=== PATIENT | female | born 1960 | race Caucasian/White ===

== ENCOUNTER 2018-10-05 18:26 | Emergency (ER) | payer OTHER ==
[~2018-10-05] VITALS: Ht 165.1 cm; Wt 225.9 kg
[2018-10-05 18:43] VITALS: BP 133/68
[2018-10-05] MEDS ORDERED: ELIQUIS5 MG PO (18:46)
[2018-10-05] MEDS ORDERED: MAXZIDE-25 MG1 EACH PO (18:47)
[2018-10-05] MEDS ORDERED: CARVEDILOL12.5 MG PO (18:47)
[2018-10-05] MEDS ORDERED: VITAMIN D1000 UNI1 PO (18:48)
[2018-10-05] MEDS ORDERED: MULTI VITAMIN1 EACH PO (18:48)
[2018-10-05 18:59] LABS: HEMATOCRIT 36.8 % (37.0-47.0); HEMOGLOBIN 11.7 gm/dL (12.0-15.0); MCH 28.6 pg (26.0-34.0); MCHC 31.7 g/dL (28.0-37.0); MCV 90.4 fL (80.0-100.0); RBC 4.07 mil/uL (4.20-5.00); RDW-CV 16.4 % (10.5-14.5); WBC 8.2 thou/uL (4.0-11.0)
== END 2018-10-05 19:56 | disposition home or self-care (01) ==
LOC: M.ERS 18:26
PROVIDERS: Emergency Medicine Emergency Medical Services
DX: R04.0 Epistaxis (principal); Z88.5 Allergy status to narcotic agent

== ENCOUNTER 2019-07-10 14:16 | Inpatient (IN) | payer OTHER ==
[~2019-07-10] VITALS: Ht 165.1 cm; Wt 234.1 kg
[~2019-07-10 14:16] MED LIST: CARVEDILOL12.5 MG PO; ELIQUIS5 MG PO; MAXZIDE-25 MG1 EACH PO; MULTI VITAMIN1 EACH PO; VITAMIN D1000 UNI1 PO
[2019-07-10 14:17] VITALS: BP 136/52
[2019-07-10 14:56] LABS: ABSOLUTE BASOPHILS 0.1 thou/uL (0.0-0.2); ABSOLUTE EOSINOPHILS 0.1 thou/uL (0.0-0.7); ABSOLUTE LYMPHOCYTES 0.7 thou/uL (0.8-5.3); ABSOLUTE MONOCYTES 0.5 thou/uL (0.0-1.2); ABSOLUTE NEUTROPHILS 5.7 thou/uL (1.6-8.1); BASOPHILS 1.1 %; EOSINOPHILS 1.2 %; HEMATOCRIT 32.6 % (37.0-47.0); HEMOGLOBIN 10.3 gm/dL (12.0-15.0); LYMPHOCYTES 9.9 %; MCH 28.1 pg (26.0-34.0); MCHC 31.7 g/dL (28.0-37.0); MCV 88.8 fL (80.0-100.0); MONOCYTES 7.7 %; MPV 8.2 fl. (7.2-11.1); NUCLEATED RBCS 0 /100WBC; PLATELET COUNT* 236 thou/uL (150-400); POLYS 80.1 %; RBC 3.67 mil/uL (4.20-5.00); RDW-CV 17.1 % (10.5-14.5); WBC 7.1 thou/uL (4.0-11.0)
--- NOTE | 2019-07-10 14:58 | NUR ---
PT REPORTS LETHARGY AT THIS TIME. PT STATES SHE HAS CHANGED HER DIET TO A KETO DIET OVER THE LAST FEW WEEKS, HAS BEEN EATING A LOT OF PROTEIN WITH NO WEIGHT LOSS BUT THINKS IT MAY BE CONTRIBUTING TO HER LETHARGY.
[2019-07-10 15:06] LABS: APTT 26.1 Seconds (25.0-31.3); BUN 26 mg/dL (7-18); CALCIUM 8.4 mg/dL (8.5-10.1); CHLORIDE 95 mmol/L (98-107); CREATININE 1.1 mg/dL (0.6-1.3); GLUCOSE 89 mg/dL (70-99); INR 1.1; POTASSIUM 4.5 mmol/L (3.5-5.1); PROTIME 11.3 Seconds (9.20-11.50); SODIUM 138 mmol/L (136-145)
[2019-07-10 15:10] LABS: CO2 > 45 mmol/L (21-32)
[2019-07-10 15:22] LABS: ALBUMIN 2.8 g/dL (3.4-5.0); ALKALINE PHOSPHATASE 71 U/L (46-116); NT-PRO BRAIN NAT PEPTIDE 1273 pg/mL (<300); SGOT 24 U/L (15-37); SGPT 25 U/L (30-65); TOTAL BILIRUBIN 0.4 mg/dL (<0.1-1.0); TOTAL PROTEIN 7.1 g/dL (6.4-8.2)
--- NOTE | 2019-07-10 15:31 | NUR ---
PT STATED HOSPITAL GOWN WILL NOT FIT AND WOULD PREFER TO STAY IN HER SHIRT/GOWN
[2019-07-10 20:35] VITALS: BP 172/75
[2019-07-10 21:00] VITALS: BP 146/65
--- NOTE | 2019-07-10 21:00 | NUR ---
RECEIVED REPORT FROM ER, PT TO ROOM AT 2044. PT ABLE TO AMBULATED WITH WALKER AND ASSISTED INTO BARIATRIC BED. VERY SOA WITH ANY MOVEMENT. O2 ON, INCREASED TO 5L/NC DUE TO LOW SAT. PRESENT O2 SAT 88%. LARGE PENDULOUS ABD AND KATYA LEG FOLDS, AREAS RED AND MOIST. RT LEG FOLD NOTED TO HAVE OPEN LESIONS. TELEMETRY APPLIED SHOWING A-FIB/FLUTTER. SEE ADMISSION HX AND ASSESSMENT. WILL CONT TO MONITOR AND ASSIST NEEDED.
[2019-07-10 23:59] VITALS: BP 137/69
[2019-07-11 03:51] VITALS: BP 124/64
--- NOTE | 2019-07-11 06:30 | NUR ---
AWAKE MOST OF NIGHT. NO COMPLAINTS OF DISCOMFORT. O2 REMAINS ON AT 5L/NC AND DYSPNEA, ASSISTED TO BSC WITH MAX ASSIST AND HYGENE NEEDS. TELEMETRY CONT TO SHOW A-FIB/FLUTTER. HS GOALS OF REST AND SAFETY ACHIEVED. HOURLY ROUNDING OBSERVED.
[2019-07-11 08:00] VITALS: BP 130/74
[2019-07-11] MEDS ORDERED: CLARITIN10 M3 PO ×2 (08:08→08:09)
[2019-07-11] MEDS ORDERED: ADVAIR 250-501 EACH INH (08:10)
[2019-07-11] MEDS ORDERED: PROAIR HFA8.5 GM INH (08:10)
[2019-07-11 11:30] VITALS: BP 132/63
--- NOTE | 2019-07-11 13:44 | EKG ---
[place] [address] ELECTROCARDIOGRAM REPORT Name: NANDO WATSON Room: [address] ADM IN [facility]#: [id number] Admission: 07/10/19 Attend Phys: Sammi Marques MD Discharge: Date of : 58 Report #: [id number] THIS REPORT FOR: //name// [facility] ED Test Date: 2019-07-10 Test Time: 15:38:45 Pat Name: NANDO WATSON Department: Room: [facility] Gender: F Manufacture Specialist: [facility] : 1960 Requested By: Amador Olivo Order Number: [id number] MD: Praveen Jackson Measurements Intervals Lynn Rate: 60 P: CT: QRS: -17 QRSD: 118 T: 32 QT: 440 QTc: 440 Interpretive Statements Atrial fibrillation Incomplete right bundle branch block Low voltage, precordial leads No previous ECG available for comparison Electronically Signed On 07-11-2019 13:44:01 [employer] WORK[employer] by Praveen Jackson [email or web address] <ELECTRONICALLY SIGNED> By: Praveen Jackson MD, [facility] 07/11/19 1344 1538 1538 Praveen Jackson MD, [facility] /EPI
--- NOTE | 2019-07-11 14:49 | NUR ---
Pt is A&O. Resides at home with her kids. Dtr assists with some ADLs. Kids completed IADLs. Pt uses a walker for in house distances and a wc for community distances. Pt wears home o2 provided through [facility]. No hx of HH or SNF. CM to check to see if Pt's insurance provides inhome care providers. Following.
[2019-07-11 16:09] VITALS: BP 132/67
[2019-07-11 20:00] VITALS: BP 137/68
--- NOTE | 2019-07-11 20:00 | NUR ---
RECEIVED REPORT AND ASSUMED CARE OF PT, ASSESSMENT COMPLETED. PT PLEASANT. O2 ON AT 5L/NC, HOB ELEVATED. SOA WITH ANY ACTIVITY. MOVES SELF IN BED FOR COMFORT. TELEMETRY ON SHOWING A-FIB WITH BBB. WILL CONT TO MONITOR AND ASSIST NEEDED.
[2019-07-12] VITALS: BP 137/73
[2019-07-12 03:57] VITALS: BP 141/75
[2019-07-12 05:21] LABS: HEMATOCRIT 31.5 % (37.0-47.0); MCH 28.1 pg (26.0-34.0); MCHC 31.9 g/dL (28.0-37.0); MCV 88.2 fL (80.0-100.0); MPV 8.5 fl. (7.2-11.1); RBC 3.57 mil/uL (4.20-5.00); RDW-CV 16.9 % (10.5-14.5); WBC 7.5 thou/uL (4.0-11.0)
[2019-07-12 05:44] LABS: ALBUMIN 2.6 g/dL (3.4-5.0); ALKALINE PHOSPHATASE 60 U/L (46-116); ANION GAP < 0 mmol/L (7-16); BUN 29 mg/dL (7-18); CALCIUM 8.3 mg/dL (8.5-10.1); CHLORIDE 95 mmol/L (98-107); CO2 44 mmol/L (21-32); CREATININE 1.2 mg/dL (0.6-1.3); GLUCOSE 161 mg/dL (70-99); SGOT 19 U/L (15-37); SGPT 24 U/L (30-65); SODIUM 136 mmol/L (136-145); TOTAL BILIRUBIN 0.3 mg/dL (<0.1-1.0); TOTAL PROTEIN 6.8 g/dL (6.4-8.2)
--- NOTE | 2019-07-12 06:10 | NUR ---
SLEPT WELL TONIGHT. ASSISTED TO BSC, USES STEP STOOLS SAFELY. NO CHANGE IN ASSESSMENT. TELEMETRY CONT TO SHOW A-FIB WITH BBB. NO COMPLAINTS VOICED. HS GOALS OF REST AND SAFETY ACHIEVED. HOURLY ROUNDING OBSERVED.
--- NOTE | 2019-07-12 11:00 | NUR ---
ASSUMED PT CARE 0730. PT A/O X'S 4. NO C/O PAIN. PT UP WITH 1 TO CHAIR AND BSC. PT SITTING IN CHAIR THIS AM. VSS. AFEBRILE. AM MEDICATIONS ADMININSTERED PER SEP.
[2019-07-12 12:02] VITALS: BP 141/67
[2019-07-12] MEDS ORDERED: LEVAQUIN 500 M500 M3 PO (12:56)
[2019-07-12] MEDS ORDERED: PREDNISONE 10 M10 MG PO (12:56)
[2019-07-12] MEDS ORDERED: SINGULAIR 10 MG10 M1 PO (12:56)
[2019-07-12 13:24] VITALS: BP 141/67
--- NOTE | 2019-07-12 13:55 | NUR ---
Orders received to set up HH, NIKKO contacted 8 HH agencies, all declined stating that Pt's insurance does not reimburse. NIKKO updated Dr and Pt, Pt to dc home today without HH. Son in room with portable o2 tank and will transport
--- NOTE | 2019-07-12 15:43 | NUR ---
RECEIVED DISCHARGE ORDERS. IV AND NURSE INTERN DC'D. PT EDUCATED ON NEW MEDICATIONS. DISCHARGE INSTRUCTIONS GIVEN TO PT AND SON. ALL BELONGINGS PACKED UP AND LEFT WITH PT. PT DC'D WITH HOME OXYGEN TANK.
== END 2019-07-12 14:24 | disposition home or self-care (01) | DRG 189 ==
LOC: M.ERS 14:16 → M.TBA-ER 15:59 → M.2W 15:59
PROVIDERS: Family Medicine; ADMIT Internal Medicine
DX: J96.21 Acute and chronic respiratory failure with hypoxia (principal); J96.22 Acute and chronic respiratory failure with hypercapnia; E66.01 Morbid (severe) obesity due to excess calories; J44.1 Chronic obstructive pulmonary disease with (acute) exacerbation; E87.2 Acidosis; Z68.45 Body mass index [BMI] 70 or greater, adult; Z88.6 Allergy status to analgesic agent; Z79.899 Other long term (current) drug therapy

== ENCOUNTER 2020-01-30 12:53 | Inpatient (IN) | payer MEDICARE, OTHER ==
[~2020-01-30] VITALS: Ht 165.1 cm; Wt 232.7 kg
[~2020-01-30 12:53] MED LIST changes: +ADVAIR 250-501 EACH INH; +ALEVE220 M1 PO; +CLARITIN10 M3 PO; +COZAAR100 MG PO; +LASIX 40 MG TAB40 M2 PO; +LEVAQUIN 500 M500 M3 PO; +MEDROL DOSPAK21 TA1 PO; +PREDNISONE 10 M10 MG PO; +PROAIR HFA8.5 GM INH; +SINGULAIR 10 MG10 M1 PO; +TRIAMTERENE/HCT1 CA1 PO; +TYLENOL ARTHRI650 MG PO
[2020-01-30 13:00] VITALS: BP 136/46
[2020-01-30 13:51] LABS: BE 8.2 mmol/L (-2 to +3); PO2 71.6 mmHg (75.0-100.0)
[2020-01-30 13:54] LABS: PCO2 90.7 mmHg (35.0-45.0); pH 7.235 (7.340-7.450)
[2020-01-30 15:15] LABS: HEMATOCRIT 27.6 % (37.0-47.0); HEMOGLOBIN 8.1 gm/dL (12.0-15.0); MCH 23.7 pg (26.0-34.0); MCHC 29.3 g/dL (28.0-37.0); MCV 80.9 fL (80.0-100.0); MPV 7.5 fl. (7.2-11.1); NUCLEATED RBCS 1 /100WBC; PLATELET COUNT* 292 thou/uL (150-400); RBC 3.41 mil/uL (4.20-5.00); RDW-CV 19.6 % (10.5-14.5)
[2020-01-30 15:17] LABS: ANION GAP < 0 mmol/L (7-16); BUN 44 mg/dL (7-18); CALCIUM 8.1 mg/dL (8.5-10.1); CHLORIDE 101 mmol/L (98-107); CO2 40 mmol/L (21-32); CREATININE 1.6 mg/dL (0.6-1.3); GLUCOSE 110 mg/dL (70-99); POTASSIUM 5.2 mmol/L (3.5-5.1); SODIUM 140 mmol/L (136-145)
[2020-01-30 15:22] LABS: ALBUMIN 2.8 g/dL (3.4-5.0); ALKALINE PHOSPHATASE 80 U/L (46-116); MAGNESIUM 2.6 mg/dL (1.8-2.4); SGOT 30 U/L (15-37); SGPT 25 U/L (30-65); TOTAL BILIRUBIN 0.6 mg/dL (<0.1-1.0); TOTAL PROTEIN 6.9 g/dL (6.4-8.2)
[2020-01-30 15:45] LABS: ABSOLUTE EOSINOPHILS 0.1 thou/uL (0.0-0.7); ABSOLUTE LYMPHOCYTES 0.5 thou/uL (0.8-5.3); ABSOLUTE MONOCYTES 0.2 thou/uL (0.0-1.2); ABSOLUTE NEUTROPHILS 8.2 thou/uL (1.6-8.1); ANISOCYTOSIS 1+; HYPOCHROMASIA 1+
[2020-01-30 15:46] LABS: PLATELET ESTIMATE ADEQUATE; POLYCHROMASIA Occasional
--- NOTE | 2020-01-30 16:22 | NUR ---
PT EDUCATED ON NOT REMOVING BIPAP HERSELF.
--- NOTE | 2020-01-30 17:59 | NUR ---
DR. BATSHEVA IRVIN WITH TRANSITIONING TO 5LNC FROM BIPAP FOR DINNER. PT PROVIDED TRAY ACCORDING TO DIET ORDER.
[2020-01-30 21:45] VITALS: BP 125/48
[2020-01-30 23:00] VITALS: BP 122/62
[2020-01-30 23:25] LABS: URINE BILIRUBIN NEGATIVE (Negative); URINE BLOOD TRACE (Negative); URINE CLARITY CLEAR; URINE COLOR YELLOW; URINE GLUCOSE-RANDOM NEGATIVE (Negative); URINE KETONES NEGATIVE (Negative); URINE LEUKOCYTES-REFLEX 1+ (Negative); URINE NITRITE-REFLEX NEGATIVE (Negative); URINE PROTEIN TRACE (Negative); URINE UROBILINOGEN 0.2 E.U./dl (0.2-1.0)
[2020-01-30 23:42] LABS: BACTERIA-REFLEX >30 Many /HPF (None Seen); CASTS None Seen /LPF (None Seen); CRYSTALS None Seen /LPF (None Seen); MUCUS 0-3 Light strn/LPF (None Seen); SQUAMOUS >10 Many /LPF (0-3); URINE RBC 0-2 Rare /HPF (0-2); URINE WBC-REFLEX 0-5 Rare /HPF (0-5)
[2020-01-31] VITALS: BP 130/58
[2020-01-31 01:18] LABS: BE 9.5 mmol/L (-2 to +3); PO2 61.9 mmHg (75.0-100.0)
[2020-01-31 01:19] LABS: pH 7.251 (7.340-7.450)
[2020-01-31 04:00] VITALS: BP 136/66
--- NOTE | 2020-01-31 06:30 | NUR ---
RECEIVED REPORT FROM ED RN. PT TRANSFERRED TO 202. PT A&OX4. VSS. WAISTBAND SETTER LOCKSTITCH IN PLACE. ADMISSION HISTORY & PHYSICAL ASSESSMENT COMPLETED AND CHARTED. ORIENTED TO ROOM & CALL LIGHT. REC MED DONE. PT ON NRB AT 15L FROM ER. TRANSFERRED TO [facility] BED. PT ONLY WORE BIPAP FOR AN HOUR & REFUSED. PREFERS TO WEAR HOME TRILOGY AT 12L. MRSA SWAB & URINE SPECIMEN SENT TO LAB. PT ABLE TO SLEEP WELL ON BED. CALL LIGHT WITHIN REACH.
[2020-01-31 07:37] LABS: HEMATOCRIT 26.5 % (37.0-47.0); HEMOGLOBIN 7.8 gm/dL (12.0-15.0); MCH 23.7 pg (26.0-34.0); MCHC 29.6 g/dL (28.0-37.0); MCV 80.1 fL (80.0-100.0); MPV 7.6 fl. (7.2-11.1); RBC 3.3 mil/uL (4.20-5.00); RDW-CV 19.5 % (10.5-14.5); WBC 7.3 thou/uL (4.0-11.0)
[2020-01-31 07:41] LABS: CREATININE 1.4 mg/dL (0.6-1.3); POTASSIUM 5.1 mmol/L (3.5-5.1)
[2020-01-31 08:00] VITALS: BP 85/68
[2020-01-31 08:35] LABS: MAGNESIUM 2.4 mg/dL (1.8-2.4)
--- NOTE | 2020-01-31 10:36 | EKG ---
[place] [address] ELECTROCARDIOGRAM REPORT Name: NANDO WATSON Room: [address] IN [facility].#: [id number] Admission: 01/30/20 Attend Phys: Fuentes Frazier, Discharge: Date of : 58 Date of Service: 01/30/20 1412 Report #: [id number] THIS REPORT FOR: //name// [facility] ED Test Date: 2020-01-30 Test Time: 14:12:53 Pat Name: NANDO WATSON Department: Room: [facility] Gender: F Wheel Lacer And Truer: ANAM : 1960 Requested By: Dariana Curran Order Number: [id number] MD: Wolf Esquivel Measurements Intervals Hiko Rate: 80 P: [place]: QRS: -39 QRSD: 119 T: 43 QT: 385 QTc: 445 Interpretive Statements Atrial fibrillation Incomplete right bundle branch block Compared to ECG 09/05/2019 20:51:38 IVCD right persists Electronically Signed On 01-31-2020 10:36:27 CDT by Wolf Esquivel [email or web address] <ELECTRONICALLY SIGNED> By: Wolf Esquivel MD, [facility] 01/31/20 1036 1412 1412 Wolf Esquivel MD, [facility] /EPI
[2020-01-31 11:44] VITALS: BP 152/72
--- NOTE | 2020-01-31 12:14 | NUR ---
Pt is A&O. Resides at home with her kids. Kids assist with ADLs and IADLs. Pt wears continuous o2 provided through [facility]. Pt has a trilogy through [employer]. Pt has a walker and wc for mobility, Pt states that she is pretty much home bound. Pt also has an adjustable bed and a commode. Hx of [facility]. No hx of SNF. CM discussed SNF with Pt, Pt is interested, Cm faxed referrals to Rosal[facility] Mendez, [facility], [place] and [facility], awaiting decision to accept. If Pt is not able to go SNF, plan is home with HH. Following.
--- NOTE | 2020-01-31 15:41 | NUR ---
ASSUMED CARE OF PT AROUND 0730 THIS AM. REFER TO ASSESSMENT. ORTHO CONSULTED FOR LEFT ELBOW PAIN. NEW ORDER FOR US TO LT ELBOW. NOT KNOWN TO BE COMPLETED AT THIS TIME. PT HAS BEEN UP TO CHAIR MOST THIS SHIFT. ABLE TO TRANSFER FROM BED TO CHAIR WITH ASSIST X1, GAIT BELT, AND WALKER. ANTICIPATE IT WILL BE NECESSARY FOR JOSE RAMON LIFT TO TRANSFER FROM CHAIR TO BED D/T HEIGHT OF BARIATRIC BED. OCCUPATIONAL THERAPY ASSISTANT NOTIFIED TO ORDER BARIATRIC RECLINER. PT'S PURE WICK CATHETER NOT WORKING CORRECTLY AND HAS BEEN REMOVED AT THIS TIME. NO OTHER CONCERNS AT THIS TIME. CLWR. WCTM.
[2020-01-31 18:26] VITALS: BP 145/78
[2020-01-31 19:50] VITALS: BP 158/72
[2020-02-01] VITALS: BP 109/58
[2020-02-01 04:00] VITALS: BP 141/57
[2020-02-01 04:42] LABS: CALCIUM 8.1 mg/dL (8.5-10.1); CREATININE 1.6 mg/dL (0.6-1.3); MAGNESIUM 2.3 mg/dL (1.8-2.4); POTASSIUM 4.7 mmol/L (3.5-5.1)
--- NOTE | 2020-02-01 04:57 | NUR ---
PT CARE ASSUMED AT 1930. ALERT AND ORIENTED X4. C/O PAIN, MEDICATION GIVEN PER EMAR. INCONTINENT OF BOWEL. CALL LIGHT WITHIN REACH AND BED IN LOW POSITION. HOURLY ROUNDING DONE FOR PT SAFETY.
[2020-02-01 07:38] VITALS: BP 130/58
[2020-02-01 12:33] VITALS: BP 137/89
[2020-02-01 12:37] VITALS: BP 137/89
--- NOTE | 2020-02-01 13:18 | NUR ---
Pt is discharging to [facility] skilled today, facility to picker tender at 3pm. Faxed dc orders. Chart copied. Nurse report number is [phone]. Son aware of dispo and will picker tender trilogy, Pt aware that she is unable to use the trilogy at [facility]. Facility ordered bipap, settings faxed.
[2020-02-01] MEDS ORDERED: LEVAQUIN 750 M750 MG PO (13:25)
--- NOTE | 2020-02-01 14:34 | NUR ---
ASSUMED CARE OF PT AROUND 0730 THIS AM. REFER TO ASSESSMENT. PT UP TO CHAIR FOR ALL MEALS. ABLE TO TRANSFER TO BSC WITH ASSIST X1 AND WALKER. SPLINT TO LUE C/D/I. MAINTAINING NWB TO LUE. PT TO TRANSFER TO [facility] THIS EVENING. CASE MANAGEMENT ARRANGING TRANSPORTATION WITH AMBULANCE. NO OTHER CONCERNS AT THIS TIME. CLWR. WCTM.
[2020-02-01 16:42] VITALS: BP 134/81
== END 2020-02-01 17:05 | DRG 177 ==
LOC: M.ERS 12:53 → M.2W 15:49 → M.TBA-ER 15:49 → M.2W 22:12
PROVIDERS: Personal Emergency Response Attendant; ADMIT Internal Medicine; ATTEND Internal Medicine
PROC: 5A09357 Assistance with Respiratory Ventilation, Less than 24 Consecutive Hours, Continuous Positive Airway Pressure (ICD-10-PCS; principal; 2020-01-30)
PROC: 5A09357 Assistance with Respiratory Ventilation, Less than 24 Consecutive Hours, Continuous Positive Airway Pressure (ICD-10-PCS; 2020-01-31)
PROC: 5A09357 Assistance with Respiratory Ventilation, Less than 24 Consecutive Hours, Continuous Positive Airway Pressure (ICD-10-PCS; 2020-02-01)
DX: J15.6 Pneumonia due to other Gram-negative bacteria (principal); J96.22 Acute and chronic respiratory failure with hypercapnia; N17.0 Acute kidney failure with tubular necrosis; J96.21 Acute and chronic respiratory failure with hypoxia; Z68.45 Body mass index [BMI] 70 or greater, adult; J44.0 Chronic obstructive pulmonary disease with (acute) lower respiratory infection; E66.2 Morbid (severe) obesity with alveolar hypoventilation; I50.32 Chronic diastolic (congestive) heart failure; J44.1 Chronic obstructive pulmonary disease with (acute) exacerbation; S46.312A Strain of muscle, fascia and tendon of triceps, left arm, initial encounter; I48.91 Unspecified atrial fibrillation; N18.3 Chronic kidney disease, stage 3 (moderate); S59.802A Other specified injuries of left elbow, initial encounter; X58.XXXA Exposure to other specified factors, initial encounter; Y93.89 Activity, other specified; Z90.5 Acquired absence of kidney; Y92.89 Other specified places as the place of occurrence of the external cause; Z79.01 Long term (current) use of anticoagulants; Z79.899 Other long term (current) drug therapy; Z88.5 Allergy status to narcotic agent; Y99.8 Other external cause status; Z03.818 Encounter for observation for suspected exposure to other biological agents ruled out

== ENCOUNTER 2020-11-12 14:10 | Inpatient (IN) | payer MEDICARE ==
[~2020-11-12] VITALS: Ht 165.1 cm; Wt 225.9 kg
--- NOTE | ~2020-11-12 | PROC ---
[facility] [address] [place] [address] PROCEDURE REPORT Name: NANDO WATSON Room: [address] IN .R.#: [id number] Admission: 11/12/20 Attend Phys: Suzy Bowden Discharge: 11/16/20 Date of : 58 Report #: [id number] THIS REPORT FOR: cc: Sherron Zhang Mischelle RNP [facility],Medical Records Staff ~ For GI report, please see the Provation report in Perceptive 7 content. By: 1453Medical Records Staff [facility] /LINDA
[~2020-11-12 14:10] MED LIST changes: +LEVAQUIN 750 M750 MG PO
[2020-11-12 14:13] VITALS: BP 141/54
[2020-11-12] MEDS ORDERED: XARELTO20 MG PO (14:18)
[2020-11-12] MEDS ORDERED: MAXZIDE 75-501 EACH PO (14:20)
[2020-11-12] MEDS ORDERED: COZAAR 25 MG TA25 M1 PO (14:20)
[2020-11-12 14:48] LABS: ABSOLUTE LYMPHOCYTES 0.5 thou/uL (0.8-5.3); ABSOLUTE MONOCYTES 0.5 thou/uL (0.0-1.2); BASOPHILS 0.4 %; EOSINOPHILS 0.6 %; LYMPHOCYTES 7.9 %; MCHC 29.4 g/dL (28.0-37.0); MCV 74.8 fL (80.0-100.0); MONOCYTES 8.4 %; MPV 7.4 fl. (7.2-11.1); NUCLEATED RBCS 1 /100WBC; PLATELET COUNT* 303 thou/uL (150-400); POLYS 82.7 %; RBC 2.56 mil/uL (4.20-5.00); RDW-CV 18.6 % (10.5-14.5); WBC 6.1 thou/uL (4.0-11.0)
[2020-11-12 14:52] LABS: HEMATOCRIT 19.2 % (37.0-47.0); HEMOGLOBIN 5.6 gm/dL (12.0-15.0)
[2020-11-12 15:08] LABS: APTT 26.5 Seconds (25.0-31.3); INR 1.1; PROTIME 12.1 Seconds (9.20-11.50)
[2020-11-12 15:13] LABS: ANION GAP < 0 mmol/L (7-16); BUN 27 mg/dL (7-18); CALCIUM 8.6 mg/dL (8.5-10.1); CHLORIDE 96 mmol/L (98-107); CO2 41 mmol/L (21-32); CREATININE 1.1 mg/dL (0.6-1.3); GLUCOSE 152 mg/dL (70-99); POTASSIUM 4.5 mmol/L (3.5-5.1); SODIUM 135 mmol/L (136-145)
[2020-11-12 15:16] LABS: POLYCHROMASIA 2+
[2020-11-12 15:17] LABS: ALBUMIN 2.9 g/dL (3.4-5.0); ALKALINE PHOSPHATASE 65 U/L (46-116); HYPOCHROMASIA 4+; MICROCYTES 1+; NT-PRO BRAIN NAT PEPTIDE 1187 pg/mL (<300); OVALOCYTES 3+; SGOT 19 U/L (15-37); SGPT 20 U/L (30-65); TOTAL BILIRUBIN 0.4 mg/dL (<0.1-1.0); TOTAL PROTEIN 6.8 g/dL (6.4-8.2)
[2020-11-12 15:18] LABS: ANISOCYTOSIS 3+
--- NOTE | 2020-11-12 15:47 | EKG ---
[place] [address] ELECTROCARDIOGRAM REPORT Name: NANDO WATSON Room: [place] [address] ADM IN [facility]#: [id number] Admission: 11/12/20 Attend Phys: Yoseph Hatch Discharge: Date of : 58 Date of Service: 11/12/20 1437 Report #: [id number] THIS REPORT FOR: //name// [facility] ED Test Date: 2020-11-12 Test Time: 14:37:15 Pat Name: NANDO WATSON Department: Room: [facility] Gender: F Chute Greaser: BERNABE : 1960 Requested By: Amador Olivo Order Number: [id number] MD: Raphael Blanca Measurements Intervals Austin Rate: 76 P: MS: QRS: -25 QRSD: 132 T: 25 QT: 400 QTc: 450 Interpretive Statements Atrial fibrillation Right bundle branch block Baseline wander in lead(s) II,III,aVR,aVF Compared to ECG 01/30/2020 14:12:53 Right bundle-branch block now present Incomplete right bundle-branch block no longer present Electronically Signed On 11-12-2020 15:47:01 CDT by Raphael Blanca [email or web address] <ELECTRONICALLY SIGNED> By: Raphael Blanca MD, [facility] 11/12/20 1547 1437 1437 Raphael Blanca MD, [facility] /EPI
[2020-11-12 15:56] LABS: URINE BILIRUBIN NEGATIVE (Negative); URINE BLOOD NEGATIVE (Negative); URINE CLARITY CLEAR; URINE COLOR YELLOW; URINE GLUCOSE-RANDOM NEGATIVE (Negative); URINE KETONES NEGATIVE (Negative); URINE LEUKOCYTES-REFLEX NEGATIVE (Negative); URINE NITRITE-REFLEX NEGATIVE (Negative); URINE PROTEIN 2+ (Negative); URINE SPECIFIC GRAVITY >= 1.030 (1.005-1.030); URINE UROBILINOGEN 0.2 E.U./dl (0.2-1.0)
[2020-11-12 16:01] LABS: BACTERIA-REFLEX 1-9 Few /HPF (None Seen); CASTS None Seen /LPF (None Seen); CRYSTALS None Seen /LPF (None Seen); SQUAMOUS 0-3 Few /LPF (0-3); URINE RBC 0-2 Rare /HPF (0-2); URINE WBC-REFLEX 0-5 Rare /HPF (0-5)
[2020-11-12 17:25] VITALS: BP 139/58
[2020-11-12 19:03] VITALS: BP 113/48
--- NOTE | 2020-11-12 20:00 | NUR ---
RECEIVED REPORT AND ASSUMED CARE OF PT, ASSESSMENT COMPLETED. TRANSFERRED ONTO BARIATRIC BED. O2 ON AT 5L/NC, NO SOA NOTED. TELEMETRY ON SHOWING A-FIB. DIURESING WELL AFTER LASIX GIVEN PER JOHNSON. WILL CONT TO MONITOR AND ASSIST NEEDED.
[2020-11-12 20:40] VITALS: BP 125/67
[2020-11-12 20:52] VITALS: BP 111/34; BP 122/56; BP 126/47; BP 127/57
[2020-11-12] MEDS ORDERED: TYLENOL ARTHRI650 MG PO (21:21)
[2020-11-12] MEDS ORDERED: ALEVE220 MG PO (21:22)
[2020-11-13] VITALS (7 sets, daily range): BP systolic 119–137; BP diastolic 44–62
--- NOTE | 2020-11-13 | NUR ---
SECOND UNIT PRBC INFUSED WITHOUT INCIDENT. REMAINS AWAKE WATCHING MOVIE ON COMPUTER.
[2020-11-13 02:10] LABS: HEMATOCRIT 20.7 % (37.0-47.0)
[2020-11-13 02:11] LABS: HEMOGLOBIN 6.2 gm/dL (12.0-15.0)
--- NOTE | 2020-11-13 05:13 | NUR ---
AWAKE MOST OF NIGHT. HGB 6.2 AFTER 2 UNITS PRBC, WILL TRANSFUSE 2 ADDITIONAL UNITS. LG AMT OF URINE OUTPUT. O2 REMAINS ON AT 5L/NC, HOB ELEVATED. PT ABLE TO MOVE SELF IN BED FOR COMFORT BUT REMAINS ON BACK. TELEMETRY ON SHOWING A-FIB. HS GOALS OF REST AND SAFETY ACHIEVED. HOURLY ROUNDING OBSERVED.
[2020-11-13 12:11] LABS: HEMATOCRIT 24.1 % (37.0-47.0); HEMOGLOBIN 7.5 gm/dL (12.0-15.0)
--- NOTE | 2020-11-13 13:06 | NUR ---
Pt is A&O.Resides at home with kids. Kids assist with ADLS and IADLS. Pt with limited mobility. Has walker, cane and wc at home. [facility] of [facility]. Hx of skilled at [facility] last year. Pt has home o2 through [facility]. Trilogy through [employer]. Therapy evals ordered. Anticiapte dc in a few days, Pt will likely need HH vs SNF. Following.
[2020-11-13 16:27] LABS: BE 16.2 mmol/L (-2 to +3); PO2 61.2 mmHg (75.0-100.0); pH 7.342 (7.340-7.450)
[2020-11-13 16:30] LABS: PCO2 84.3 mmHg (35.0-45.0)
--- NOTE | 2020-11-13 17:09 | 2DMMODE ---
[place] [address] 2 D/M-MODE ECHOCARDIOGRAM Name: NANDO WATSON Toby Room: [address] IN [facility].#: [id number] Admission: 11/12/20 Attend Phys: Yoseph Hatch Discharge: Date of : 58 Date of Service: 11/13/20 1709 Report #: [id number] THIS REPORT FOR: cc: Sherron Zhang Mischelle RNP Liston, Michael J. MD [facility] ~ APPROVED REPORT Study performed: 11/13/2020 15:47:33 EXAM: Comprehensive 2D, Doppler, and color-flow Echocardiogram Patient Location: Bedside BSA: 2.92 HR: 68 bpm BP: 136/62 mmHg Other Information Study Quality: Technically Difficult Technically limited study due to body habitus, inability to position patient. Indications Pre-Op Congestive Heart Failure 2D Dimensions IVSd: 13.97 (7-11mm) LVOT Diam: 17.87 (18-24mm) LVDd: 50.47 mm PWd: 12.70 (7-11mm) Ascending Ao: 29.46 (22-36mm) LVDs: 39.13 (25-40mm) Aortic Root: 36.26 mm Aortic Valve AoV Peak Aaron.: 1.14 m/s AO Peak Gr.: 5.24 mmHg LVOT Max P.87 mmHg AO Mean Gr.: 3.40 mmHg LVOT Mean P.85 mmHg LVOT Max V: 0.68 m/s AO V2 VTI: 21.20 cm LVOT Mean V: 0.42 m/s ALEAH (VTI): 1.32 cm2 LVOT V1 VTI: 11.19 cm Mitral Valve E/A Ratio: 1.88 MV Decel. Time: 130.99 [place] [address] 2 D/M-MODE ECHOCARDIOGRAM Name: NANDO WATSON Room: [address] IN [facility].#: [id number] Admission: 11/12/20 Attend Phys: Yoseph Hatch Discharge: Date of : 58 Date of Service: 11/13/20 1709 Report #: [id number] MV E Max Aaron.: 1.21 m/s MV PHT: 37.99 ms MVA (PHT): 5.79 cm2 TDI E/Lateral E': 17.29 E/Medial E': 12.10 Medial E' Aaron.: 0.10 m/s Lateral E' Aaron.: 0.07 m/s Pulmonary Valve PV Peak Aaron.: 1.19 m/s PV Peak Gr.: 5.62 mmHg Tricuspid Valve RAP Estimate: 5.00 mmHg TR Peak Gr.: 7.95 mmHg RVSP: 12.95 mmHg PA Pressure: 12.95 mmHg Left Ventricle The left ventricle is normal size. There is normal LV segmental wall motion. Mild concentric left ventricular hypertrophy. Left ventricular systolic function is normal. LVEF is 50-55%. Right Ventricle Right ventricle is mildly dilated. The right ventricular systolic function is normal. Atria The left atrium size is normal. Interatrial septum not well visualized. Right atrium is mildly dilated. Aortic Valve Aortic valve is not well visualized. No aortic regurgitation is present. There is no aortic valvular stenosis. Mitral Valve There is mitral annular calcification. Mild mitral regurgitation. No evidence of mitral valve stenosis. Tricuspid Valve The tricuspid valve is normal in structure. Trace tricuspid regurgitation. Pulmonic Valve Pulmonic valve is not well visualized. [place] [address] 2 D/M-MODE ECHOCARDIOGRAM Name: CHARI WATSONDARRYL Luis Room: [address]#: [id number] Admission: 11/12/20 Attend Phys: Yoseph Hatch Discharge: Date of : 58 Date of Service: 11/13/20 1709 Report #: [id number] Great Vessels The aortic root is normal in size. Aortic arch is not visualized. IVC is not visualized. Pericardium There is no pericardial effusion. <Conclusion> The left ventricle is normal size. Mild concentric left ventricular hypertrophy. Left ventricular systolic function is normal. LVEF is 50-55%. Right ventricle is mildly dilated. Right atrium is mildly dilated. There is mitral annular calcification. Mild mitral regurgitation. Trace tricuspid regurgitation. Trace pulmonic regurgitation. <ELECTRONICALLY SIGNED> By: Raphael Blanca MD, FACC 11/13/201708 08 08 Raphael Blanca MD, FACC /INF
--- NOTE | 2020-11-13 18:25 | NUR ---
PATIENT HAS REMAINED A&OX4, PLEASANT AND COOPERATIVE WITH CARES THIS SHIFT. ADMINISTERED A FOURTH UNIT OF BLOOD TO PATIENT THIS MORNING, BRINGING HGB TO 7.5. PATIENT ON 4L OF 02 VIA NASAL CANNULA, WHICH SHE WEARS AT HOME. PATIENT HAS HAD A FEW SOFT BOWEL MOVEMENTS TODAY, BROWN IN COLOR HOWEVER POITIVE FOR OCCULT BLOOD. URINARY CATHETER IN PLACE HANGING TO DD, CLEAR YELLOW URINE COLLECTING IN BAG. GI CONSULTED, 2 DAY BOWEL PREP STARTED THIS EVENING. DR. SANTANA ORDERED ABG'S, CRITICAL PCO2=84.3 AND HCO3=44.7; PULMONARY CONSULTATION ORDERED IN PREPARATION FOR SEDATION FOR EGD/COLONOSCOPY. PATIENT UP X1-2 ASSIST WITH GB AND WALKER. ASAD HAS BEEN UP IN RECLINER MOST OF SHIFT, STATING SHE "BREATHES BETTER THAT WAY". CALL LIGHT AND FREQUENTLY USED ITEMS WITHIN REACH.
[2020-11-13 19:05] LABS: ABSOLUTE BASOPHILS 0.1 thou/uL (0.0-0.2); ABSOLUTE EOSINOPHILS 0.1 thou/uL (0.0-0.7); ABSOLUTE LYMPHOCYTES 0.7 thou/uL (0.8-5.3); ABSOLUTE MONOCYTES 0.6 thou/uL (0.0-1.2); ABSOLUTE NEUTROPHILS 6.9 thou/uL (1.6-8.1); BASOPHILS 0.8 %; EOSINOPHILS 0.6 %; HEMATOCRIT 25.6 % (37.0-47.0); HEMOGLOBIN 7.9 gm/dL (12.0-15.0); MCH 23.7 pg (26.0-34.0); MCHC 30.8 g/dL (28.0-37.0); MCV 77.1 fL (80.0-100.0); MONOCYTES 7.5 %; NUCLEATED RBCS 0 /100WBC; PLATELET COUNT* 302 thou/uL (150-400); POLYS 83.1 %; RBC 3.32 mil/uL (4.20-5.00); RDW-CV 19.6 % (10.5-14.5); WBC 8.3 thou/uL (4.0-11.0)
[2020-11-13 19:10] LABS: ANION GAP < 0 mmol/L (7-16); BUN 23 mg/dL (7-18); CALCIUM 8.6 mg/dL (8.5-10.1); CHLORIDE 93 mmol/L (98-107); CREATININE 1.2 mg/dL (0.6-1.3); GLUCOSE 116 mg/dL (70-99); MAGNESIUM 2.2 mg/dL (1.8-2.4); POTASSIUM 4.4 mmol/L (3.5-5.1); SODIUM 136 mmol/L (136-145)
[2020-11-13 19:20] LABS: CO2 45 mmol/L (21-32)
[2020-11-14] VITALS: BP 136/60
[2020-11-14 04:00] VITALS: BP 131/63
[2020-11-14 04:57] LABS: HEMATOCRIT 24.2 % (37.0-47.0); HEMOGLOBIN 7.4 gm/dL (12.0-15.0); MCH 23.4 pg (26.0-34.0); MCHC 30.4 g/dL (28.0-37.0); MPV 7.3 fl. (7.2-11.1); NUCLEATED RBCS 0 /100WBC; PLATELET COUNT* 257 thou/uL (150-400); RBC 3.15 mil/uL (4.20-5.00); RDW-CV 19.7 % (10.5-14.5); WBC 7.3 thou/uL (4.0-11.0)
[2020-11-14 05:12] LABS: ALBUMIN 2.8 g/dL (3.4-5.0); ALKALINE PHOSPHATASE 69 U/L (46-116); ANION GAP < 0 mmol/L (7-16); BUN 21 mg/dL (7-18); CALCIUM 8.4 mg/dL (8.5-10.1); CHLORIDE 95 mmol/L (98-107); CO2 43 mmol/L (21-32); GLUCOSE 154 mg/dL (70-99); MAGNESIUM 2.3 mg/dL (1.8-2.4); POTASSIUM 4.9 mmol/L (3.5-5.1); SGOT 21 U/L (15-37); SGPT 23 U/L (30-65); SODIUM 135 mmol/L (136-145); TOTAL BILIRUBIN 0.6 mg/dL (<0.1-1.0); TOTAL PROTEIN 6.7 g/dL (6.4-8.2)
[2020-11-14 05:45] LABS: ABSOLUTE LYMPHOCYTES 0.5 thou/uL (0.8-5.3); ABSOLUTE MONOCYTES 0.1 thou/uL (0.0-1.2); ABSOLUTE NEUTROPHILS 6.7 thou/uL (1.6-8.1); HYPOCHROMASIA 1+; PLATELET ESTIMATE ADEQUATE; POLYCHROMASIA 1+
[2020-11-14 05:46] LABS: ANISOCYTOSIS Occasional; POIKILOCYTOSIS Occasional; TOXIC GRANULATION 1+
--- NOTE | 2020-11-14 05:56 | NUR ---
ASSUMED PT CARE AT APPROX 1930. PT IS AWAKE AND ORIENTED X4. PT IS NOT IN DISTRESS, MAINTAINED spO2 >90% WITH O2/NC AT 4L. PT IS AFLUTTER/AFIB ON THE ISOTOPE TECHNICIAN. PT DENIES PAIN. PT REFUSED TO WEAR BIPAP AT HS, EDUCATION GIVEN. DR RICHARDSON INFORMED. FALL PRECAUTIONS IN PLACE. CALL LIGHT WITHIN REACH.
[2020-11-14 10:23] LABS: BE 14.1 mmol/L (-2 to +3); PO2 65.6 mmHg (75.0-100.0); pH 7.391 (7.340-7.450)
[2020-11-14 10:28] LABS: PCO2 69.7 mmHg (35.0-45.0)
[2020-11-14 11:27] VITALS: BP 139/61
--- NOTE | 2020-11-14 12:09 | NUR ---
Therapies to see. Endoscopy today. vs SNF. Anticipate dc in a few days.
[2020-11-14 16:00] VITALS: BP 127/51
[2020-11-14 20:00] VITALS: BP 119/61
--- NOTE | 2020-11-14 22:20 | NUR ---
PT SITTING UP ON BED. VSS AFEBRILE. PT HAS MID LINE IN HER LEFT UPPER ARM FLUSHES WELL, DRESSING C/D/I. PT DENIES PAIN. PT STARTED ON BOWEL PREP. WILL CONTINUE TO MONITOR PLAN OF CARE.
[2020-11-15] VITALS: BP 129/60
[2020-11-15 04:26] LABS: ABSOLUTE LYMPHOCYTES 0.3 thou/uL (0.8-5.3); ABSOLUTE MONOCYTES 0.3 thou/uL (0.0-1.2); ABSOLUTE NEUTROPHILS 5.4 thou/uL (1.6-8.1); BASOPHILS 0.2 %; HEMATOCRIT 24.2 % (37.0-47.0); HEMOGLOBIN 7.6 gm/dL (12.0-15.0); LYMPHOCYTES 4.3 %; MCH 24.1 pg (26.0-34.0); MCHC 31.5 g/dL (28.0-37.0); MCV 76.4 fL (80.0-100.0); MONOCYTES 4.3 %; MPV 7.2 fl. (7.2-11.1); NUCLEATED RBCS 1 /100WBC; PLATELET COUNT* 272 thou/uL (150-400); POLYS 91.2 %; RBC 3.16 mil/uL (4.20-5.00); RDW-CV 20.3 % (10.5-14.5); WBC 5.9 thou/uL (4.0-11.0)
[2020-11-15 04:30] VITALS: BP 125/64; BP 128/53
[2020-11-15 04:43] LABS: ALKALINE PHOSPHATASE 66 U/L (46-116); ANION GAP < 0 mmol/L (7-16); BUN 21 mg/dL (7-18); CALCIUM 8.8 mg/dL (8.5-10.1); CHLORIDE 91 mmol/L (98-107); CO2 44 mmol/L (21-32); GLUCOSE 148 mg/dL (70-99); MAGNESIUM 2.2 mg/dL (1.8-2.4); POTASSIUM 4.4 mmol/L (3.5-5.1); SGOT 16 U/L (15-37); SGPT 24 U/L (30-65); SODIUM 133 mmol/L (136-145); TOTAL BILIRUBIN 0.5 mg/dL (<0.1-1.0); TOTAL PROTEIN 6.9 g/dL (6.4-8.2)
--- NOTE | 2020-11-15 05:06 | NUR ---
ASSUMED PT CARE AT APPROX 1930. PT IS AWAKE AND ORIENTED X4. PT IS NOT IN DISTRESS, MAINTAINED spO2 >90% WITH O2/NC AT 4L. PT IS AFLUTTER/AFIB ON THE ELECTRONIC ENGINEERING TECHNICIAN. PT DENIES PAIN. BOWEL PREP IN PROGRESS. NO ACUTE CHANGES THIS SHIFT. PT IS NPO AFTER MIDNIGHT FOR COLONOSCOPY/EGD. CALL LIGHT WITHIN REACH. HOURLY ROUNDING DONE FOR PT SAFETY.
[2020-11-15 08:00] VITALS: BP 125/67
[2020-11-15 08:58] LABS: BE 14.7 mmol/L (-2 to +3); PO2 70.7 mmHg (75.0-100.0); pH 7.358 (7.340-7.450)
[2020-11-15 09:01] LABS: PCO2 77.6 mmHg (35.0-45.0)
--- NOTE | 2020-11-15 13:30 | NUR ---
Pt having EGD today. Goal is home at dc with HH. CM to speak with Pt post EGD to determine if she wants HH at dc, if wants HH, CM to have [place] from [facility] screen. Critical abg today. Pt will likely need an ambulance transport home.
--- NOTE | 2020-11-15 13:31 | NUR ---
ASSUMED CARE OF PATIENT THIS AM AT 0730. PATIENT IS ALERT AND ORIENTED X 5. SHE DENIES PAIN. PATIENT KEPT NPO FOR COLONOSCOPY. TELE SHOWS A FIB. PATIENT TAKEN TO PACU FOR PROCEDURE. CRITICAL ABG RESULTS CALLED AND RELAYED TO DR CODY. WILL CONTINUE TO MONITOR RESPIRATORY STATUS AND COMFORT.
[2020-11-15 16:00] VITALS: BP 149/62
--- NOTE | 2020-11-15 16:51 | NUR ---
DAMIR NTRomie Bedside Note: Patient and family would like HH. Informed CM, [place] and weekend mercedez Arora. Confirmed PCP as FLOOR REPRESENTATIVE Justine Zhang working with Dr. Jovanny Dietrich in [facility] in [facility] appointments.
[2020-11-15 20:00] VITALS: BP 139/56
[2020-11-15 23:56] VITALS: BP 138/64
[2020-11-16 04:00] VITALS: BP 127/72
[2020-11-16 08:00] VITALS: BP 125/59
[2020-11-16] MEDS ORDERED: PREDNISONE 10 M10 MG PO (10:40)
[2020-11-16] MEDS ORDERED: MIRALAX17 GM PO (10:40)
[2020-11-16] MEDS ORDERED: IRON325 PO (10:40)
[2020-11-16] MEDS ORDERED: PROTONIX40 M2 PO (10:40)
[2020-11-16 11:35] VITALS: BP 125/59
--- NOTE | 2020-11-16 14:10 | NUR ---
PLAN FOR THIS PT TO D/C HOME TODAY WITH HER PREVIOUSLY CHOSEN HH MELLY. CM FAXED PT'S D/C HH ORDERS TO [facility]. CM WILL REMAIN AVAILABLE TO ASSIST AND FOLLOW NEEDED. MELLY PHONE: [phone] FAX: [phone]
--- NOTE | 2020-11-16 15:59 | NUR ---
ASSUMED PT CARE AT 0730, PT AOX4, NO C/O PAIN. PT IN BARIATRIC BED THAT TURNS HER AND PT MOVES SELF AROUND IN BED W/ MINIMAL ASSISTANCE, PT GOT UP TO CHAIR TODAY AND WORKED W/ DR, DC ORDERS RECEIVED. IV, JOHNSON AND SQUIRT MACHINE OPERATOR REMOVED. PT WANTED TO STAY UNTIL 1600, EXPLAINED THAT SINCE HER RIDE (HER SON) WAS IN THE ROOM W/ HER THAT WE COULDN'T LET HER STAY UNLESS MEDICALLY INDICATED. CHARGE NURSE CONSULTED AND TALKED TO PT ABOUT DC PAPERWORK ALREADY BEING DONE AND GIVEN TO PT AND THAT WE CAN'T KEEP HER HERE WHEN HER RIDE IS ALREADY HERE. PT STATES SHE WANTED TO HAVE ANOTHER BM BEFORE SHE GOES, GAVE PT TIME AND GOT HER UP TO COMMODE, PT ONLY PASSED GAS AND AGREED TO DC AT THAT TIME. PT DC'D BY WC W/ NURSING STAFF AND ALL PAPERWORK AND PERSONAL BELONGINGS TO SON'S VEHICLE AT APPROX 1415.
--- NOTE | 2020-11-17 19:02 | CON ---
[address] [address] CONSULTATION Name: NANDO WATSON Toby Room: [address] IN .R.#: [id number] Admission: 11/12/20 Attend Phys: Suzy Bowden Discharge: 11/16/20 Date of : 58 Report #: [id number] THIS REPORT FOR: cc: Sherron Zhang Mischelle RNP Vardakis, Gregory DO ~ DOC #: [id number] cc: Yoseph Hatch DO, Dr. Tim Jorge DO DATE OF CONSULTATION: 11/13/2020 REFERRING PHYSICIAN: Yoseph Hatch DO REASON FOR CONSULTATION: 1. Severe iron deficiency anemia. 2. Morbid obesity. 3. Obesity hypoventilation syndrome. 4. Chronic obstructive pulmonary disease, which is oxygen requiring. 5. Chronic atrial fibrillation, on chronic anticoagulation in the form of Xarelto. RECOMMENDATIONS: 1. We will proceed with a 2-day bowel preparation to ensure that she is well prepped for a colonoscopy. 2. The patient will likely need to have her upper and lower endoscopy done under general endotracheal anesthesia on Wednesday. We will check a baseline blood gas to determine whether or not she has evidence for hypercapnic chronic respiratory failure and if necessary enlist the help of Pulmonary for her care. 3. We will hold her Xarelto and avoid all nonsteroidals and aspirin products at this time. 4. We will also consult Anesthesia for preprocedure consultation. I discussed the patient's case with Dr. Ronal Contreras. 5. We would hold off on starting any oral iron supplementation at this time and in fact she may actually need to get iron infusions as opposed to oral iron due to her issues with constipation. 6. I have discussed these plans with the patient as well and patient is agreeable to the same. HISTORY OF PRESENT ILLNESS: The patient is a very pleasant 60-year-old white female who is morbidly obese with a weight of over 500 pounds, who has a history of respiratory failure and obesity hypoventilation syndrome with history of sleep apnea as well. She presented to the emergency room with complaints of severe shortness of breath and was found to be severely anemic with hemoglobin of only 5.6 on admission. Her last hemoglobin in January of last year was 7.8[place] [address] CONSULTATION Name: NANDO WATSON Room: [address]#: [id number] Admission: 11/12/20 Attend Phys: Suzy Bowden Discharge: 11/16/20 Date of : 58 Report #: [id number] She does have a history of chronic acid reflux, but nothing has been severe. She denies dysphagia or odynophagia. She denies any black stools, tarry stools or blood in her stools. She does have a tendency towards constipation. When she needs to go to the bathroom, she will have cramping after which she will go to the bathroom. She does not really see any bleeding, but she does not look. She has a family history of colon cancer in her mother. She was admitted to the hospital for further evaluation and treatment. ALLERGIES: CODEINE AND MORPHINE. MEDICATIONS: At home include Maxzide, multivitamin, Claritin, Advair, ProAir, Xarelto, Tylenol. She does take some Aleve. PAST MEDICAL HISTORY: Remarkable for underlying hypertension, COPD, which is oxygen requiring at 3-4 liters per nasal cannula and she is intolerant to her CPAP. She does better with BiPAP. She cannot afford Trelegy and she tolerates this much better. She has chronic atrial fibrillation as well. PAST SURGICAL HISTORY: She has had previous endometrial ablation, hernia surgery. She has had a previous left nephrectomy due to her kidney cancer, a right detached retina and diastolic heart disease. SOCIAL HISTORY: The patient does not smoke or drink. FAMILY HISTORY: As above. PHYSICAL EXAMINATION: GENERAL: A pleasant 60-year-old white female, who is awake and alert. CARDIOPULMONARY: Revealed a regular rate and rhythm. LUNGS: Clear. ABDOMEN: Soft and nontender. I cannot really appreciate any obvious organomegaly or mass. LABORATORY DATA: Laboratory tests from 11/12 revealed a white count of 6.1, hemoglobin 5.6, platelet count of 303,000. MCV is 74.8 and RDW of 18.6. By comparison, in 01/2020, white count was 7.3, hemoglobin 7.8, platelet count was 253,000, MCV 80.1, RDW 19.5. Her sodium on admission 135, potassium 4.5, chloride 96, bicarbonate is 41, BUN is 27, creatinine 1.1, total bilirubin 0.4, alkaline phosphatase 65, AST 19, ALT 20, albumin is 2.9. DISCUSSION: At the present time, the patient has severe anemia. We will proceed with evaluation as I mentioned above and a bowel preparation. We will enlist the help of Anesthesia to determine what would be the best way to sedate her. I have discussed plans with the patient as well [place] [address] CONSULTATION Name: NANDO WATSON Room: [address]#: [id number] Admission: 11/12/20 Attend Phys: Suzy Bowden Discharge: 11/16/20 Date of : 58 Report #: [id number] same. Raymond Jorge DO GV/BHU <ELECTRONICALLY SIGNED> By: Raymond Jorge DO 11/17/20 1902 1328 2042Raymond Jorge DO /
--- NOTE | 2020-11-18 15:08 | CON ---
[address] [address] CONSULTATION Name: WALTERNANDO L Room: [address]#: [id number] Admission: 11/12/20 Attend Phys: Suzy Bowden Discharge: 11/16/20 Date of : 58 Report #: [id number] THIS REPORT FOR: cc: Sherron Zhang Mischelle RNP Pervez, Adeel MD ~ DOC #: [id number] Manuelito Hong MD DATE OF CONSULTATION: 11/13/2020 REQUESTING PHYSICIAN: Dr. Jorge. INDICATIONS FOR CONSULTATION: Preop pulmonary evaluation for GI scopes. HISTORY OF PRESENT ILLNESS: This is a 60-year-old female with past medical history as mentioned below, this does include with a history of COPD as well as obstructive sleep apnea. The patient also is on anticoagulation for atrial fibrillation, long-term. The patient previously has used a BiPAP at home; however, states that she lost her insurance and therefore lost her BiPAP as well and currently therefore does not have a BiPAP at home. She is on 4 liters oxygen continuous. She says that she had limited compliance with BiPAP in the past. At this time, the patient is admitted with generalized weakness. She was also found to have low blood counts with a hemoglobin of 5.6 as an outpatient. The patient since then has been evaluated by the GI service who are planning to do GI scopes on Wednesday. She has received 4 units of packed RBCs. The patient has had a rise in hemoglobin to 7.5, which is not as much as expected. The patient does report shortness of breath at rest as well as on exertion; however, she does not state that this is worse than her baseline. She has had a cough. There is not much sputum. There is no chest pain. She does not have upper respiratory complaints. She does have swelling of lower extremities. She says that this is not different from her baseline, either there is no calf pain. She has had disturbed sleep at night as she has sleepiness during the day. These symptoms are also not changed compared with her baseline. The patient answers negative for 12-point review of systems except as mentioned above. PAST MEDICAL HISTORY: COPD, I do not have previous PFTs available, on 4 liters oxygen continuous; obstructive sleep apnea, has had a BiPAP in the past, but not current as above. There are chronic changes on her chest x-rays previously. On previous chest x-rays, I am not aware of any workup. Chronic diastolic congestive heart failure, chronic anemia, left-sided nephrectomy due to cancer, right-sided detached retina, obesity hypoventilation syndrome, hypertension, endometrial ablation and hernia surgery. There is recent echo, which shows a [facility] [address] [place] [address] CONSULTATION Name: WALTERNANDO L Room: [address]#: [id number] Admission: 11/12/20 Attend Phys: Suzy Bowden Discharge: 11/16/20 Date of : 58 Report #: [id number] left ventricular ejection fraction of 50-55% without significant elevation in right heart pressures. SOCIAL HISTORY: She says that she had an extensive history of smoking, discontinued in the . No known history of heavy alcohol use or illegal drug use. CURRENT MEDICATIONS: List in [employer], reviewed. HOME MEDICATION: List in [employer], reviewed. ALLERGIES: MORPHINE AND CODEINE ARE MENTIONED ALLERGIES. FAMILY HISTORY: No pertinent family history noted at this time. PHYSICAL EXAMINATION: GENERAL: She is alert, awake and oriented, does not appear to be in any distress at this time. VITAL SIGNS: Pulse of 65 and blood pressure of 126/44. She is saturating 94%. She is on 4 liters nasal cannula. Respiratory rate is 18-20. She is afebrile with a temperature of 36.9. She has morbid obesity with a body mass index of 83. HEENT: Head is normocephalic and atraumatic. Pupils are equal and reactive. There is no throat erythema. NECK: Does not show raised JVP asymmetry, mass or lymph nodes. CHEST: Symmetrical expansion on inspection and palpation on auscultation. LUNGS: Breath sounds are bilaterally equal, but decreased. I do not hear any added sounds. HEART: Irregular, but there is no murmur. Heart rate is normal. ABDOMEN: Mildly distended and nontender. EXTREMITIES: Lower extremities show 1+ edema bilaterally. There is no calf tenderness. SKIN: Dry and intact. NEUROLOGIC: Moves all extremities bilaterally equally and spontaneously with no focal deficit identified. DIAGNOSTIC DATA: The patient's chest x-ray was reviewed. There are some chronic changes. There is likely mild increase in pulmonary vascular congestion, cannot rule out acute infiltrates. Due to these findings, I do not see any obvious new infiltrates at this time. LABORATORY DATA: The patient's lab work in [facility], reviewed. I ordered repeat labs now, which are pending. The patient's COVID-19 screen is negative. [address] [address] CONSULTATION Name: NANDO WATSON Room: [address]#: [id number] Admission: 11/12/20 Attend Phys: Suzy Bowden Discharge: 11/16/20 Date of : 58 Report #: [id number] ASSESSMENT AND PLAN: 1. Chronic hypercarbic respiratory failure. I would favor decreasing her pCO2 before proceeding to GI scopes. I discussed with the patient therefore that it is imperative that we use a BiPAP regularly at night. If the patient does use a BiPAP regularly, then likely we will be able to reduce the pCO2 by Wednesday for planned scopes, otherwise it may be difficult. The patient says that she is comfortable only with the nose only mask. I am not certain if when is available in the hospital at this time. I discussed with respiratory therapist. We will repeat an ABG tomorrow and see where we stand. If pH remains normal, then I will consider giving her Diamox tomorrow. 2. Chronic obstructive pulmonary disease. Symptoms are at baseline. In order to optimize her respiratory status for GI scopes, I will go ahead and give her nebulized bronchodilators and I will give her Solu-Medrol as well. 3. Obstructive sleep apnea and obesity hypoventilation syndrome. Ideally, the patient should be on a Trilogy while asleep. BiPAP may improve these conditions; however, I doubt that we will have full control. Unfortunately, she says that the only insurance she has is Medicare part A. I will discuss with the binder caser tomorrow regarding our options for long-term therapy. 4. Fluid overload. She appears to be fluid overloaded on my exam. She likely will lose some fluid with the colonoscopy prep. We will go ahead and repeat labs now and then consider giving her Lasix. Also, I will assess tomorrow for Diamox as above. 5. Pulmonary infiltrates. There are some infiltrates on her previous chest x-rays as well and this showed, therefore, these may be old and not in fact indicating pneumonia. Regardless, I will go ahead and obtain a sputum culture and nasal swab for MRSA. For now, I decided to hold off on antibiotics. Likely, there is a component of pulmonary vascular congestion as well. 6. Acute gastrointestinal bleed. As I am ordering Solu-Medrol, I will give her Protonix as well, pending GI review. 7. Atrial fibrillation. Note that the patient is on long-term anticoagulation at home. 8. Chronic diastolic congestive heart failure. See discussion above. Thanks for this consultation. MD INA Goldberg/CHUY <ELECTRONICALLY SIGNED> By: Manuelito Hong MD 11/18/20 1508 1739 2042Airene Hong MD /nt
--- NOTE | 2020-11-19 13:08 | PATH ---
[address] [address] PATHOLOGY RPT PROCEDURE Name: NANDO WATSON Room: [address] IN ..#: [id number] Admission: 11/12/20 Date of : 58 Discharge: 11/16/20 Report #: [id number] Path Case #: [id number] [facility] Accession Number: [id number] . 01 Material submitted: . duodenum - DUODENAL EROSIONS BIOPSY . 01 Clinical history: . EGD AND COLONOSCOPY . 02 Diagnosis: Duodenal erosions biopsy: - Benign, superficial duodenal mucosa with mild nonspecific active inflammation, negative for granulomas, viral inclusions and dysplasia. (JAE:elsie; 11/18/2020) [facility] 11/18/2020 1846 Local . 02 Electronically signed: . Reed Alicea MD, Pathologist NPI- [id number] . 01 Gross description: . Received in formalin labeled "Panfilo, Nando, duodenal erosions" are multiple salgado-brown soft tissue fragments measuring in aggregate 0.5 x 0.4 x 0.1 cm. The specimen is submitted entirely in A1. ([facility]; 11/16/2020) [facility] 11/16/2020 1140 Local . 02 Pathologist provided ICD-10: K29.80 . 02 CPT . 203150 Specimen Comment: A courtesy copy of this report has been sent to [phone] Specimen Comment: [phone] Specimen Comment: Report sent to / DR ROPER Performed at: 01 [facility] [id number] [facility] [address], [place], [place] [id number] MD Uli Nowak MD Phone: [phone] Performed at: 02 [facility] [address], [place], [place] [id number] MD Reed Alicea MD Phone: [phone]
== END 2020-11-16 14:30 | disposition home health service (06) | DRG 377 ==
LOC: M.ERS 14:10 → M.TBA-ER 15:15 → M.2W 15:15
PROVIDERS: Family Medicine; Internal Medicine Critical Care Medicine; Internal Medicine Gastroenterology; ADMIT Internal Medicine; ATTEND Internal Medicine
PROC: 30233N1 Transfusion of Nonautologous Red Blood Cells into Peripheral Vein, Percutaneous Approach (ICD-10-PCS; 2020-11-12)
PROC: 05HF33Z Insertion of Infusion Device into Left Cephalic Vein, Percutaneous Approach (ICD-10-PCS; 2020-11-12)
PROC: B54NZZA Ultrasonography of Left Upper Extremity Veins, Guidance (ICD-10-PCS; 2020-11-12)
PROC: 0DB98ZX Excision of Duodenum, Via Natural or Artificial Opening Endoscopic, Diagnostic (ICD-10-PCS; principal; 2020-11-15)
PROC: 0DJD8ZZ Inspection of Lower Intestinal Tract, Via Natural or Artificial Opening Endoscopic (ICD-10-PCS; principal; 2020-11-15)
PROC: 5A09357 Assistance with Respiratory Ventilation, Less than 24 Consecutive Hours, Continuous Positive Airway Pressure (ICD-10-PCS; principal; 2020-11-15)
DX: K26.4 Chronic or unspecified duodenal ulcer with hemorrhage (principal); I50.33 Acute on chronic diastolic (congestive) heart failure; J96.10 Chronic respiratory failure, unspecified whether with hypoxia or hypercapnia; D62 Acute posthemorrhagic anemia; Z68.45 Body mass index [BMI] 70 or greater, adult; I11.0 Hypertensive heart disease with heart failure; G47.33 Obstructive sleep apnea (adult) (pediatric); E66.01 Morbid (severe) obesity due to excess calories; J44.9 Chronic obstructive pulmonary disease, unspecified; K21.9 Gastro-esophageal reflux disease without esophagitis; I48.91 Unspecified atrial fibrillation; K44.9 Diaphragmatic hernia without obstruction or gangrene; K64.8 Other hemorrhoids; K64.4 Residual hemorrhoidal skin tags; Z20.822 Contact with and (suspected) exposure to COVID-19; Z79.899 Other long term (current) drug therapy; Z79.01 Long term (current) use of anticoagulants; Z85.528 Personal history of other malignant neoplasm of kidney

== ENCOUNTER 2021-02-27 11:38 | Inpatient (IN) | payer MEDICARE ==
[~2021-02-27] VITALS: Ht 165.1 cm; Wt 220.0 kg
[~2021-02-27 11:38] MED LIST changes: +ALEVE220 MG PO; +COZAAR 25 MG TA25 M1 PO; +IRON325 PO; +MAXZIDE 75-501 EACH PO; +MIRALAX17 GM PO; +PROTONIX40 M2 PO; +XARELTO20 MG PO
[2021-02-27 11:45] VITALS: BP 143/54
[2021-02-27 12:53] LABS: ABSOLUTE EOSINOPHILS 0.1 thou/uL (0.0-0.7); ABSOLUTE LYMPHOCYTES 0.6 thou/uL (0.8-5.3); ABSOLUTE MONOCYTES 0.5 thou/uL (0.0-1.2); ABSOLUTE NEUTROPHILS 6.2 thou/uL (1.6-8.1); BASOPHILS 0.4 %; EOSINOPHILS 0.8 %; HEMATOCRIT 31.6 % (37.0-47.0); HEMOGLOBIN 9.6 gm/dL (12.0-15.0); LYMPHOCYTES 7.8 %; MCH 26.8 pg (26.0-34.0); MCHC 30.4 g/dL (28.0-37.0); MCV 88.4 fL (80.0-100.0); MONOCYTES 6.9 %; NUCLEATED RBCS 0 /100WBC; PLATELET COUNT* 241 thou/uL (150-400); POLYS 84.1 %; RBC 3.57 mil/uL (4.20-5.00); RDW-CV 14.1 % (10.5-14.5); WBC 7.4 thou/uL (4.0-11.0)
[2021-02-27 13:01] LABS: ANION GAP < 0 mmol/L (7-16); BUN 19 mg/dL (7-18); CALCIUM 8.6 mg/dL (8.5-10.1); CHLORIDE 96 mmol/L (98-107); GLUCOSE 127 mg/dL (70-99); POTASSIUM 4.7 mmol/L (3.5-5.1); SODIUM 139 mmol/L (136-145)
[2021-02-27 13:02] LABS: CO2 45 mmol/L (21-32)
[2021-02-27 13:06] LABS: ALBUMIN 2.9 g/dL (3.4-5.0); ALKALINE PHOSPHATASE 89 U/L (46-116); SGOT 23 U/L (15-37); SGPT 27 U/L (30-65); TOTAL BILIRUBIN 0.3 mg/dL (<0.1-1.0); TOTAL PROTEIN 6.7 g/dL (6.4-8.2)
[2021-02-27 13:40] LABS: BE 10.3 mmol/L (-2 to +3); PO2 90.7 mmHg (75.0-100.0)
[2021-02-27 13:42] LABS: PCO2 89.9 mmHg (35.0-45.0); pH 7.265 (7.340-7.450)
--- NOTE | 2021-02-27 16:25 | EKG ---
[place] [address] ELECTROCARDIOGRAM REPORT Name: NANDO WATSON Room: [place] [address] ADM IN [facility]#: [id number] Admission: 02/27/21 Attend Phys: Kaleb Guillen, Discharge: Date of : 58 Date of Service: 02/27/21 1221 Report #: [id number] THIS REPORT FOR: //name// [facility] ED Test Date: 2021-02-27 Test Time: 12:21:39 Pat Name: NANDO WATSON Department: Room: [facility] Gender: F Unclaimed Property Officer: ORTEGA : 1960 Requested By: Tutu Hdez Order Number: [id number] MD: Wolf Esquivel Measurements Intervals [place] Rate: 74 P: MI: QRS: -18 QRSD: 144 T: 56 QT: 397 QTc: 441 Interpretive Statements Atrial fibrillation Right bundle branch block Baseline wander in lead(s) V1 Compared to ECG 11/12/2020 14:37:15 No significant changes Electronically Signed On 02-27-2021 16:24:54 CDT by Wolf Esquivel [email or web address] <ELECTRONICALLY SIGNED> By: Wolf Esquivel MD, [facility] 02/27/21 1624 1221 1221 Wolf Esquivel MD, [facility] /EPI
[2021-02-27 19:11] VITALS: BP 153/79
[2021-02-27 20:54] VITALS: BP 136/67
[2021-02-27 22:00] VITALS: BP 154/58
[2021-02-28 00:13] VITALS: BP 142/69
--- NOTE | 2021-02-28 01:03 | NUR ---
PT TO FLOOR APPROX 220 FROM ED, IV LOST IN TRANSIT. PT AO X4 ON BIPAP. SHE STATES SHE WEARS 4L NC AT HOME. LUNGS COURSE WITH WHEEZES, COUGH WITH YELLOW TO CLEAR PRODUCTION AT TIMES. NEW IV ESTABLISHED IN LT HAND, IV MEDS ADMINISTERED, JOHNSON CATH PLACED WITH 800 Ml IMMEDIATELY OUT, CLEAR YELLOW URINE. PT SKIN INTACT WITH SOME AREAS OF EXCORIATION AND HEALING IN MARIELA AREA. PT DENIES PAIN, MAKES NEEDS KNOWN,CALL LIGHT WITHIN REACH.
[2021-02-28 04:33] VITALS: BP 141/84
[2021-02-28 05:20] LABS: HEMATOCRIT 29.8 % (37.0-47.0); HEMOGLOBIN 9.3 gm/dL (12.0-15.0); MCH 27.2 pg (26.0-34.0); MCHC 31.1 g/dL (28.0-37.0); MCV 87.6 fL (80.0-100.0); MPV 7.8 fl. (7.2-11.1); NUCLEATED RBCS 0 /100WBC; PLATELET COUNT* 239 thou/uL (150-400); RBC 3.41 mil/uL (4.20-5.00); RDW-CV 14.1 % (10.5-14.5); WBC 6.4 thou/uL (4.0-11.0)
[2021-02-28 05:58] LABS: ANION GAP < 0 mmol/L (7-16); BUN 18 mg/dL (7-18); CHLORIDE 93 mmol/L (98-107); CO2 43 mmol/L (21-32); CREATININE 0.9 mg/dL (0.6-1.3); GLUCOSE 141 mg/dL (70-99); POTASSIUM 5.5 mmol/L (3.5-5.1); SODIUM 135 mmol/L (136-145)
[2021-02-28 07:35] VITALS: BP 157/90
[2021-02-28 08:40] LABS: ABSOLUTE LYMPHOCYTES 0.4 thou/uL (0.8-5.3); ABSOLUTE MONOCYTES 0.1 thou/uL (0.0-1.2); PLATELET ESTIMATE ADEQUATE
--- NOTE | 2021-02-28 15:07 | NUR ---
CM spoke with Pt's son via phone.Pt is PUI. Known to this CM from previous hospital stays. Pt resides at home with her kids. Kids assist with ADLs and IADLs. Pt has a walker, cane and wc at home. Pt wears home o2 at 4L through [facility]. Pt had a trilogy but when Pt's insurance changed, trilogy was picked up. NIKKO spoke with Ness at [facility], Pt will need to be requalified for a trilogy, if Pt still needs, updated Pt currently on bipap. [facility]. Hx of SNF at [place]. Following for dc needs.
[2021-02-28 17:54] VITALS: BP 138/78
--- NOTE | 2021-02-28 17:57 | NUR ---
PT A/OX4, PLEASANT AND COOPERATIVE, PT REFUSED BARIATRIC BED BECAUSE SHE CANNOT GET IN AND OUT OF IT. SHE HAS NO C/O PAIN OR DISCOMFORT THIS SHIFT, VSS, ON 4L NC AND BIPAP AT HS. NEW IV IN PT RIGHT CHEST.
[2021-02-28 19:25] VITALS: BP 153/83
[2021-03-01 00:24] VITALS: BP 151/86
--- NOTE | 2021-03-01 01:36 | NUR ---
ASSUMED CARE OF PT AT 1900. PT IS ALERT AND ORIENTED. VSS. PERRLA. NO COMPLAINTS OF PAIN. PT IS IN A FIB ON THE TELEMETRY. PT IS RESTING COMFORTABLY IN BED. RESPIRATIONS ARE EVEN AND NONLABORED. WILL CONTINUE TO MONITOR PT.
[2021-03-01 04:32] VITALS: BP 166/93
[2021-03-01 08:00] VITALS: BP 146/70
[2021-03-01 13:06] VITALS: BP 163/67
[2021-03-01 16:00] VITALS: BP 159/64
[2021-03-01 22:00] VITALS: BP 157/68
[2021-03-02 04:00] VITALS: BP 160/87
--- NOTE | 2021-03-02 05:22 | NUR ---
RECEIVED REPORT FROM JOB AGUILAR. PT TRANSFERRED TO 215. PT A&OX4. VSS. SCREEN PRINTING LOADER UNLOADER IN PLACE. PHYSICAL ASSESSMENT COMPLETED AND CHARTED. PT ON O2 AT 4L NC/BIPAP AT HS. PT TRACING AFIB/BBB/DENVER ON TELE. FALL PRECAUTIONS IN PLACE. CALL LIGHT WITHIN REACH.
[2021-03-02 09:00] VITALS: BP 149/86
[2021-03-02 11:30] VITALS: BP 179/79
[2021-03-02 15:49] LABS: ABSOLUTE BASOPHILS 0.1 thou/uL (0.0-0.2); ABSOLUTE LYMPHOCYTES 0.3 thou/uL (0.8-5.3); ABSOLUTE MONOCYTES 0.6 thou/uL (0.0-1.2); ABSOLUTE NEUTROPHILS 5.6 thou/uL (1.6-8.1); HEMATOCRIT 32.8 % (37.0-47.0); HEMOGLOBIN 10.4 gm/dL (12.0-15.0); LYMPHOCYTES 3.9 %; MCH 26.6 pg (26.0-34.0); MCHC 31.6 g/dL (28.0-37.0); MCV 84.3 fL (80.0-100.0); MPV 7.1 fl. (7.2-11.1); NUCLEATED RBCS 0 /100WBC; PLATELET COUNT* 310 thou/uL (150-400); POLYS 86.1 %; RBC 3.89 mil/uL (4.20-5.00); WBC 6.5 thou/uL (4.0-11.0)
[2021-03-02 16:01] LABS: ALBUMIN 3.2 g/dL (3.4-5.0); CALCIUM 9.3 mg/dL (8.5-10.1); CREATININE 1.4 mg/dL (0.6-1.3); POTASSIUM 5.4 mmol/L (3.5-5.1); TOTAL BILIRUBIN 0.4 mg/dL (<0.1-1.0); TOTAL PROTEIN 7.1 g/dL (6.4-8.2)
[2021-03-02 16:02] VITALS: BP 154/75
[2021-03-02 18:05] VITALS: BP 147/75
[2021-03-02 19:30] VITALS: BP 145/72
--- NOTE | 2021-03-02 20:14 | NUR ---
180-CLERICAL TRANSCRIBER CAME TO REPORT TO NURSE THAT PT LOWERED HERSELF TO GROUND IN ROOM WHILE ATTEMPTING TO TRANSFER TO BED FROM RECLINER. PT STATED HER KNEES GAVE OUT AND CLERICAL TRANSCRIBER ASKED HER TO SIT BACK DOWN BUT PT WANTED TO GET TO BED AND SHE WAS TOO WEAK. PT DENIES INJURY AND NO APPARENT INJURIES OR SKIN ISSUES NOTED. NOTIFIED MUSIC BOX MECHANIC THANG AND CHARGE NURSE WELL .
[2021-03-03 01:46] VITALS: BP 116/71
--- NOTE | 2021-03-03 04:35 | NUR ---
ASSUMED PT CARE AT APPROX. 1930. PT IS A/OX4. VSS. PT SITTING UPRIGHT IN BED WATCHING TV. PT IS TRACING AFIB ON CROSSING GUARD. PT DENIES C/O PAIN. FALL PRECAUTIONS IN PLACE FOR SAFETY. MEDICATIONS ADMINISTERED PRESCRIBED. CALL LIGHT WITHIN REACH. HOURLY ROUNDS COMPLETE CHARTED. NO ACUTE CHANGES THIS SHIFT. WILL CONT TO MONITOR.
[2021-03-03 06:04] VITALS: BP 120/76
[2021-03-03 09:00] VITALS: BP 148/92
[2021-03-03 12:00] VITALS: BP 171/69
--- NOTE | 2021-03-03 15:50 | NUR ---
Anticipate dc tomorrow. CM to fax trilogy referral to [facility] to see if Pt can be requalified for home unit.
[2021-03-03 16:00] VITALS: BP 104/74
[2021-03-03 20:30] VITALS: BP 142/75
[2021-03-04] VITALS (7 sets, daily range): BP systolic 124–151; BP diastolic 67–93
[2021-03-04 04:50] LABS: HEMOGLOBIN 9.5 gm/dL (12.0-15.0); MCH 27.2 pg (26.0-34.0); MCHC 32.7 g/dL (28.0-37.0); MCV 83.2 fL (80.0-100.0); MPV 7.3 fl. (7.2-11.1); RBC 3.48 mil/uL (4.20-5.00); RDW-CV 13.6 % (10.5-14.5); WBC 6.9 thou/uL (4.0-11.0)
[2021-03-04 04:52] LABS: CALCIUM 8.9 mg/dL (8.5-10.1); CREATININE 1.2 mg/dL (0.6-1.3); MAGNESIUM 1.8 mg/dL (1.8-2.4); POTASSIUM 5.1 mmol/L (3.5-5.1)
[2021-03-04] MEDS ORDERED: PREDNISONE 10 M10 MG PO (07:27)
[2021-03-04] MEDS ORDERED: CEFDINIR300 MG PO (07:27)
[2021-03-04] MEDS ORDERED: XARELTO20 MG PO (12:37)
--- NOTE | 2021-03-04 14:21 | NUR ---
Pt discharging to home today. Ambulance to apple picker and transport at 4. CM faxed signed trilogy order to [facility], they will arrange delivery with Pt.
--- NOTE | 2021-03-04 14:23 | NUR ---
Insurance auth received. Pt discharging to [facility] SNF today. Updated Pt's niece. Chart copied.NUrse report number is [phone]. Facility to picking tech between [phone]
--- NOTE | 2021-03-04 15:16 | NUR ---
Pt discharging to home today via ambulance, will lemon picker at 4pm. CM faxed trilogy order to [facility] to arrange delivery with Pt. Son in room and aware of POC
--- NOTE | 2021-03-04 16:13 | NUR ---
PATIENT GIVEN D/C INSTRUCTIONS WELL INFORMATION SHEETS FOR NEW PRESCRIPTIONS AND MEDICATIONS REVIEWED. IV AND URINARY CATHETER REMOVED. AMBULANCE DRIVERS ARRIVED AT APPROX. 1610 TO TRANSPORT PATIENT HOME VIA STRETCHER AND LEFT UNIT AT 1615. PATIENT'S SON TOOK ALL OF PATIENT'S PERSONAL BELONGINGS WITH HIM.
== END 2021-03-04 16:15 | disposition home health service (06) | DRG 177 ==
LOC: M.ERS 11:38 → M.ORTHSURG 14:24 → M.TBA-ER 14:24 → M.ORTHSURG 20:13 → M.2W 03-01 20:50
PROVIDERS: Internal Medicine; Physician Assistant; ADMIT Internal Medicine; ATTEND Internal Medicine
DX: J15.6 Pneumonia due to other Gram-negative bacteria (principal); J96.22 Acute and chronic respiratory failure with hypercapnia; I50.33 Acute on chronic diastolic (congestive) heart failure; J96.21 Acute and chronic respiratory failure with hypoxia; Z68.45 Body mass index [BMI] 70 or greater, adult; E66.2 Morbid (severe) obesity with alveolar hypoventilation; J44.0 Chronic obstructive pulmonary disease with (acute) lower respiratory infection; I11.0 Hypertensive heart disease with heart failure; Z20.822 Contact with and (suspected) exposure to COVID-19; Z90.5 Acquired absence of kidney; I48.91 Unspecified atrial fibrillation; Z88.6 Allergy status to analgesic agent; Z87.891 Personal history of nicotine dependence; Z79.899 Other long term (current) drug therapy

== ENCOUNTER 2021-06-29 11:37 | Inpatient (IN) | payer MEDICARE, OTHER ==
[~2021-06-29] VITALS: Ht 165.1 cm; Wt 216.8 kg
[~2021-06-29 11:37] MED LIST changes: +CEFDINIR300 MG PO
[2021-06-29 11:44] VITALS: BP 151/65
[2021-06-29] MEDS ORDERED: ELEMENTAL ZINC30 MG PO (11:49)
[2021-06-29] MEDS ORDERED: VITAMIN D310 MCG PO (11:49)
[2021-06-29 12:22] LABS: ABSOLUTE EOSINOPHILS 0.1 thou/uL (0.0-0.7); ABSOLUTE LYMPHOCYTES 0.6 thou/uL (0.8-5.3); ABSOLUTE MONOCYTES 0.4 thou/uL (0.0-1.2); ABSOLUTE NEUTROPHILS 5.3 thou/uL (1.6-8.1); BASOPHILS 0.6 %; EOSINOPHILS 1.6 %; HEMATOCRIT 34.7 % (37.0-47.0); HEMOGLOBIN 10.8 gm/dL (12.0-15.0); MCH 28.6 pg (26.0-34.0); MCV 92.5 fL (80.0-100.0); MONOCYTES 5.7 %; MPV 8.5 fl. (7.2-11.1); NUCLEATED RBCS 0 /100WBC; PLATELET COUNT* 241 thou/uL (150-400); POLYS 83.1 %; RBC 3.76 mil/uL (4.20-5.00); RDW-CV 15.9 % (10.5-14.5); WBC 6.4 thou/uL (4.0-11.0)
[2021-06-29 12:27] LABS: CALCIUM 8.7 mg/dL (8.5-10.1); CREATININE 1.1 mg/dL (0.6-1.3)
[2021-06-29 12:40] LABS: TOTAL BILIRUBIN 0.5 mg/dL (<0.1-1.0); TOTAL PROTEIN 7.1 g/dL (6.4-8.2)
[2021-06-29 19:30] VITALS: BP 132/87
[2021-06-29 23:40] VITALS: BP 135/85
[2021-06-30 03:40] VITALS: BP 138/75
[2021-06-30 06:21] LABS: HEMATOCRIT 32.8 % (37.0-47.0); HEMOGLOBIN 10.2 gm/dL (12.0-15.0); MCH 28.2 pg (26.0-34.0); MCV 90.8 fL (80.0-100.0); MPV 7.6 fl. (7.2-11.1); RBC 3.61 mil/uL (4.20-5.00); RDW-CV 15.6 % (10.5-14.5); WBC 6.7 thou/uL (4.0-11.0)
[2021-06-30 06:37] LABS: ALBUMIN 2.6 g/dL (3.4-5.0); CALCIUM 8.7 mg/dL (8.5-10.1); CREATININE 1.1 mg/dL (0.6-1.3); MAGNESIUM 1.8 mg/dL (1.8-2.4); POTASSIUM 4.6 mmol/L (3.5-5.1); TOTAL BILIRUBIN 0.5 mg/dL (<0.1-1.0); TOTAL PROTEIN 6.4 g/dL (6.4-8.2)
[2021-06-30 08:30] VITALS: BP 140/50
[2021-06-30 10:00] LABS: INFLUENZA A ANTIGEN Negative (Negative); INFLUENZA B ANTIGEN Negative (Negative)
[2021-06-30 11:40] VITALS: BP 167/86
--- NOTE | 2021-06-30 12:27 | EKG ---
[place] [address] ELECTROCARDIOGRAM REPORT Name: NANDO WATSON Room: [place] [address] ADM IN [facility]#: [id number] Admission: 06/29/21 Attend Phys: Sammi Marques, Discharge: Date of : 58 Date of Service: 06/29/21 1145 Report #: [id number] THIS REPORT FOR: //name// [facility] ED Test Date: 2021-06-29 Test Time: 11:45:42 Pat Name: NANDO WATSON Department: Room: [facility] Gender: F Sander Setter: : 1960 Requested By: Morgan Harvey Order Number: [id number] MD: Wolf Esquivel Measurements Intervals [place] Rate: 75 P: SD: QRS: -33 QRSD: 132 T: 23 QT: 390 QTc: 436 Interpretive Statements Atrial fibrillation Ventricular premature complex Right bundle branch block Compared to ECG 02/27/2021 12:21:39 Ventricular premature complex(es) now present Electronically Signed On 06-30-2021 12:27:07 TABLEMAN by Wolf Esquivel [email or web address] <ELECTRONICALLY SIGNED> By: Wolf Esquivel MD, [facility] 06/30/21 1227 1145 1145 Wolf Esquivel MD, [facility] /EPI
--- NOTE | 2021-06-30 15:02 | NUR ---
CM ASSESSMENT ASSESSMENT COMPLETED WITH PT'S SON (NAZ WATSON -[phone]). PT RESIDES IN SINGLE STORY HOME WITH ADULT CHILDREN. PT USES A WALKER AND WC BOTH AT HOME AND IN COMMUNITY. PT USES A CPAP AND HOME O2 - AMOUNT AND SUPPLYING AGENCY NOT KNOWN. PT INDEPENDENT WITH ADLS. PT HAS BEEN TO SNF TWICE - ONE IN [place] AND THE OTHER IN [place]. PT HAS HH HX AND PT AND FAMILY SEEKING TO RESUME HH SERVICES UPON DC. CM TO FOLLOW.
[2021-07-01] VITALS (8 sets, daily range): BP systolic 95–137; BP diastolic 50–79
[2021-07-01] MEDS ORDERED: SLOW FE142 MG PO (01:15)
[2021-07-01] MEDS ORDERED: PROTONIX40 M2 PO (01:16)
--- NOTE | 2021-07-01 07:22 | NUR ---
RECEIVED REPORT FROM SHINGLE WEAVER. PT TRANSFERRED TO 113. PT A&OX4. VSS. ATM SERVICER IN PLACE. ADMISSION HISTORY & PHYSICAL ASSESSMENT COMPLETED AND CHARTED. PT ON A2 AT 4L NC/CPAP AT HS. PT TRACING AFIB/BBB ON TELE. PT WITH JOHNSON TO DEPENDENT DRAIN. FALL PRECAUTIONS IN PLACE. CALL LIGHT WITHIN REACH.
[2021-07-01 11:19] LABS: ABSOLUTE EOSINOPHILS 0.1 thou/uL (0.0-0.7); ABSOLUTE LYMPHOCYTES 0.5 thou/uL (0.8-5.3); ABSOLUTE MONOCYTES 0.6 thou/uL (0.0-1.2); ABSOLUTE NEUTROPHILS 4.6 thou/uL (1.6-8.1); BASOPHILS 0.3 %; EOSINOPHILS 1.6 %; HEMATOCRIT 34.2 % (37.0-47.0); HEMOGLOBIN 10.8 gm/dL (12.0-15.0); LYMPHOCYTES 7.9 %; MCH 28.3 pg (26.0-34.0); MCHC 31.6 g/dL (28.0-37.0); MCV 89.5 fL (80.0-100.0); MONOCYTES 10.2 %; MPV 7.5 fl. (7.2-11.1); NUCLEATED RBCS 0 /100WBC; PLATELET COUNT* 214 thou/uL (150-400); RBC 3.82 mil/uL (4.20-5.00); RDW-CV 15.8 % (10.5-14.5); WBC 5.8 thou/uL (4.0-11.0)
[2021-07-01 11:36] LABS: ALBUMIN 2.8 g/dL (3.4-5.0); CALCIUM 9.4 mg/dL (8.5-10.1); CREATININE 1.1 mg/dL (0.6-1.3); POTASSIUM 4.3 mmol/L (3.5-5.1); TOTAL BILIRUBIN 0.7 mg/dL (<0.1-1.0); TOTAL PROTEIN 7.1 g/dL (6.4-8.2)
--- NOTE | 2021-07-01 13:21 | NUR ---
CM FOLLOWUP PT NOT MED CLEAR. PT ON 10L O2 AND USING TRILOGY. CM TO FOLLOW PT IS ANTICIPATED TO NEED HH WHEN MEDICALLY CLEAR.
[2021-07-01 17:42] LABS: BE 17.3 mmol/L (-2 to +3); PO2 60.4 mmHg (75.0-100.0); pH 7.463 (7.340-7.450)
[2021-07-01 17:49] LABS: PCO2 63.2 mmHg (35.0-45.0)
[2021-07-02 03:49] VITALS: BP 148/66
[2021-07-02 05:07] LABS: ABSOLUTE LYMPHOCYTES 0.3 thou/uL (0.8-5.3); ABSOLUTE MONOCYTES 0.2 thou/uL (0.0-1.2); ABSOLUTE NEUTROPHILS 4.8 thou/uL (1.6-8.1); BASOPHILS 0.3 %; HEMATOCRIT 34.4 % (37.0-47.0); LYMPHOCYTES 5.6 %; MCH 28.6 pg (26.0-34.0); MCHC 31.8 g/dL (28.0-37.0); MONOCYTES 3.2 %; MPV 7.9 fl. (7.2-11.1); NUCLEATED RBCS 0 /100WBC; PLATELET COUNT* 210 thou/uL (150-400); POLYS 90.9 %; RBC 3.82 mil/uL (4.20-5.00); RDW-CV 15.4 % (10.5-14.5); WBC 5.3 thou/uL (4.0-11.0)
[2021-07-02 05:51] LABS: ALBUMIN 2.8 g/dL (3.4-5.0); ALKALINE PHOSPHATASE 71 U/L (46-116); CHLORIDE 92 mmol/L (98-107); GLUCOSE 149 mg/dL (70-99); MAGNESIUM 1.7 mg/dL (1.8-2.4); SGOT 14 U/L (15-37); SGPT < 6 U/L (30-65); TOTAL BILIRUBIN 0.5 mg/dL (<0.1-1.0); TOTAL PROTEIN 7.1 g/dL (6.4-8.2)
[2021-07-02 05:53] LABS: ANION GAP 5 mmol/L (7-16); BUN 20 mg/dL (7-18); CALCIUM 9.4 mg/dL (8.5-10.1); CO2 40 mmol/L (21-32); CREATININE 1.2 mg/dL (0.6-1.3); POTASSIUM 4.3 mmol/L (3.5-5.1); SODIUM 137 mmol/L (136-145)
[2021-07-02 06:00] LABS: PREALBUMIN 15.1 mg/dL (18.0-35.7)
--- NOTE | 2021-07-02 07:06 | NUR ---
ASSUMED CARE OF PT AFTER REPORT AT 1930. PT A&OX4. VSS. PHYSICAL ASSESSMENT COMPLETED AND CHARTED. PT ON O2 AT 5L NC/CPAP AT HS. PT TRACING AFIB/BBB ON TELE. PT DENIES PAIN. CALL LIGHT WITHIN REACH.
[2021-07-02 08:00] VITALS: BP 144/80
[2021-07-02 13:03] VITALS: BP 151/80
--- NOTE | 2021-07-02 13:30 | CON ---
[address] [address] CONSULTATION Name: WALTERNANDO Toby Room: [address] IN M.R.#: [id number] Admission: 06/29/21 Attend Phys: Sammi Marques MD Discharge: Date of : 58 Report #: [id number] THIS REPORT FOR: cc: Sherron Zhang Mischelle RNP Pervez, Adeel MD ~ DATE OF CONSULTATION: 07/01/2021 REQUESTING PHYSICIAN: Kaleb Guillen MD INDICATION FOR CONSULTATION: Acute hypoxemic respiratory failure secondary to COVID-19. HISTORY OF PRESENT ILLNESS: This is a 61-year-old female. I have seen her during a previous hospitalization. The patient has chronic hypoxemic and hypercarbic respiratory failure. She has significant CO2 retention from the last available arterial blood gas, the pCO2 was 89.9. The patient had a home CPAP. I have recommended that we switch this over to Trilogy. Apparently, the patient still is on the CPAP. She has only one kidney. She is now here with acute hypoxemic respiratory failure secondary to COVID-19. Currently, she is on 8 liters of oxygen. Does complain of shortness of breath, has a cough, small amount of sputum production. No chest pain, mild swelling of lower extremities, has sleep complaints, which are at baseline. REVIEW OF SYSTEMS: Negative for 12 points except as above. PAST MEDICAL HISTORY: Obstructive sleep apnea, obesity hypoventilation syndrome, significant CO2 retention at baseline. Previous arterial blood gases showed pCO2 in the range of 70-90s. Echocardiogram shows a normal left ventricular ejection fraction without elevation in right heart pressures, left sided nephrectomy, right retina detached, AFib, on Xarelto, obesity hypoventilation syndrome, COPD is also mention in the record; however, it appears to me that primarily respiratory complaints secondary to obstructive sleep apnea and obesity hypoventilation syndrome, hypertension, chronic diastolic congestive heart failure. SOCIAL HISTORY: Extensive history of smoking, discontinued early . ALLERGIES: MORPHINE AND CODEINE. CURRENT MEDICATIONS: List in [facility] reviewed. HOME MEDICATIONS: List [place] [facility] [place] [address] CONSULTATION Name: NANDO WATSON Room: [address]#: [id number] Admission: 06/29/21 Attend Phys: Sammi Marques MD Discharge: Date of : 58 Report #: [id number] FAMILY HISTORY: No pertinent family history. PHYSICAL EXAMINATION: GENERAL: She is alert, awake and oriented. Body mass index is 82. VITAL SIGNS: In the records reviewed. Head is normocephalic and atraumatic. NECK: Does not show raised JVP. CHEST: Breath sounds are bilaterally equal, but decreased. I do not hear any added sounds. HEART: Regular. No murmur. ABDOMEN: Soft and nontender. EXTREMITIES: Lower extremities, trace to 1+ edema, no calf tenderness. LABORATORY DATA: Chest x-rays as well as laboratory work in [facility] reviewed. ASSESSMENT AND PLAN: 1. Acute on chronic hypoxemic and hypercarbic respiratory failure. The patient is currently using her home CPAP. I recommended that we switch this over to hospital BiPAP in AVAPS mode; however, the patient is claustrophobic with the hospital BiPAP and therefore did not make a change at this time. If she becomes more hypoxemic, I will bring this up with the patient again. Regardless, I do recommend that a Trilogy device to be set up before her discharge. Noninvasive mechanical ventilation is required for the treatment of chronic respiratory failure with significant hypercarbia to delay the patient's eventual and reduce readmission rate. In case a Trilogy device is brought here prior to discharge, she can do this while in the hospital as well. 2. COVID-19. We will start dexamethasone. Recent general article indicates that there is a trend towards a better outcomes, although not statistically significant when patients are on 10 or more liters of oxygen and dexamethasone is increased to 6 mg b.i.d. from once a day. I decided to give her b.i.d., dexamethasone. Watch glucoses. Insulin sliding scale is ordered. I recommend starting remdesivir. I discussed this with the patient as well. The patient is worried about the nephrotoxicity from remdesivir. I did explain to her that this will be very unlikely in her case, but the patient, however, at this time prefers not to receive remdesivir and states that she will think about it overnight and let us know tomorrow. Also, recommend Actemra. I understand Actemra is in short supply. 3. Obstructive sleep apnea with obesity hypoventilation syndrome. This is the primary etiology of her respiratory complaints at baseline. 4. Chronic obstructive pulmonary disease, also mentioned on the records, although primarily she has sleep apnea and obesity hypoventilation syndrome. She is on nebulized bronchodilators. We will continue. See discussion regarding steroid as above. 5. Fluid overload, is on Lasix. We will watch electrolytes closely. Give him additional potassium and magnesium to avoid a drop. [facility] [address] [place] [address] CONSULTATION Name: NANDO WATSON Room: [address]#: [id number] Admission: 06/29/21 Attend Phys: Sammi Marques MD Discharge: Date of : 58 Report #: [id number] 6. History of atrial fibrillation, on anticoagulation. 7. Morbid obesity. 8. Gastrointestinal prophylaxis, Protonix. 9. Clostridium difficile prophylaxis, Lactinex. The patient is critically ill at this time. Total time spent providing critical care to this patient today exceeds 39 minutes. <ELECTRONICALLY SIGNED> By: Manuelito Hong MD 07/02/21 1330 1524 1907Airene Hong MD /nt
--- NOTE | 2021-07-02 15:56 | NUR ---
CM FOLLOWUP PT NOT MED CLEAR. CM TO FOLLOW PT MAY REQUIRE HH UPON DC.
[2021-07-02 16:00] VITALS: BP 178/94
[2021-07-02 20:15] VITALS: BP 136/63
[2021-07-02 23:57] VITALS: BP 134/68
[2021-07-03 04:04] VITALS: BP 144/80
--- NOTE | 2021-07-03 07:39 | NUR ---
PATIENT SLEPT MOST OF THE NIGHT. JOHNSON REMAINS TO DEPENDENT DRAIN. IV WENT BAD PATIENT WANTED TO WAIT TILL THIS MORNING TO RESTART. WILL CONTINUE TO MONITOR.
[2021-07-03 08:00] VITALS: BP 147/78
[2021-07-03 12:00] VITALS: BP 136/67
--- NOTE | 2021-07-03 14:10 | NUR ---
CM FOLLOWUP PT NOT MED CLEAR YET AND ON NC 02 AND BIPAP. PT ANTICIPATED TO REQUIRE SKILLED SERVICES POST DC FROM [facility]. SNF DISCUSSED WITH PT. PT REPORTS PREFERANCE IS TO RETURN TO [facility] SHE PREVIOUSLY WENT THERE. CM INFORMED PT [facility] IS A REHAB AND PT MAY NOT QUALIFY. PT AGRREABLE TO REFERRAL FOR SNF IF NOT ACCEPTED BY [facility]. CM CALLED [facility] TO INQUIRE IF THEY OFFERED SKILLED SERVICES. CM WAS INFORMED [facility] DID N0T. [facility] REQUESTED CM FAX PT REFERRAL FOR REVIEW.
--- NOTE | 2021-07-03 15:00 | NUR ---
WOUND NURSE; TYRELL WAS OFFERED A BARIATRIC BED, BUT REFUSED IT. THIS WAS DISCONTINUED A RESULT.
[2021-07-03 16:00] VITALS: BP 140/74
[2021-07-03 21:00] VITALS: BP 153/65
[2021-07-04] VITALS: BP 146/80
[2021-07-04 04:00] VITALS: BP 140/88
[2021-07-04 08:00] VITALS: BP 152/89
[2021-07-04 12:00] VITALS: BP 154/82
[2021-07-04 16:00] VITALS: BP 142/72
[2021-07-04 20:30] VITALS: BP 138/74
[2021-07-05] VITALS: BP 137/69
[2021-07-05 04:00] VITALS: BP 164/82
--- NOTE | 2021-07-05 04:22 | NUR ---
PT RECEIVED LASIX 2500 ML URINE OUT ESTIMATED OVERNIGHT. SHE IS ALERT AND ORIENTED, HFC OF 15 LITER. DIMINISHED LUNG SOUNDS AND SOB WITH EXERTION. HER CARDIAC RHYTHM WAS SINUS RHYTHM ALL SHIFT. ABG SHOW LOW po2 89% O2 SAT AT 0400.PCR PENDING. URINE AND NASAL SWAB SENT TO LAB OVERNIGHT FOR H1N1 AND LEGIONELLA SCREEN. NO NEW REPORTS OF WORSENING OF CONDITION. SHE IS UP AD NIMESH TO [facility], RECEIVED ALL MEDS SCHEDULED.
--- NOTE | 2021-07-05 06:34 | NUR ---
PT ALERT AND ORIENTED, RECEIVED ALL MEDS SCHEDULED, TRILOGY USED AT NIGHT AND 5l-O2 WHILE AWAKE. NO REPORTS OF WORSENING OF CONDITION. SHE DID NOT GET UP THIS SHIFT BUT DID SLEEP WELL. ALEX HAS LARGE AMOUNT URINE OUTPUT. 1750 ML THIS MORNING EMPTIED.
[2021-07-05 08:00] VITALS: BP 111/80
[2021-07-05 11:30] VITALS: BP 144/76
[2021-07-05 11:47] LABS: HEMATOCRIT 38.2 % (37.0-47.0); HEMOGLOBIN 12.1 gm/dL (12.0-15.0); MCH 28.5 pg (26.0-34.0); MCHC 31.8 g/dL (28.0-37.0); MCV 89.8 fL (80.0-100.0); MPV 7.9 fl. (7.2-11.1); NUCLEATED RBCS 0 /100WBC; PLATELET COUNT* 267 thou/uL (150-400); RBC 4.25 mil/uL (4.20-5.00); RDW-CV 15.6 % (10.5-14.5)
[2021-07-05 12:02] LABS: ALBUMIN 3.1 g/dL (3.4-5.0); CREATININE 1.3 mg/dL (0.6-1.3); POTASSIUM 4.1 mmol/L (3.5-5.1); TOTAL BILIRUBIN 0.4 mg/dL (<0.1-1.0); TOTAL PROTEIN 7.5 g/dL (6.4-8.2)
[2021-07-05 12:36] LABS: ABSOLUTE LYMPHOCYTES 0.6 thou/uL (0.8-5.3); ABSOLUTE MONOCYTES 0.1 thou/uL (0.0-1.2); ABSOLUTE NEUTROPHILS 6.2 thou/uL (1.6-8.1)
[2021-07-05 12:37] LABS: PLATELET ESTIMATE ADEQUATE
--- NOTE | 2021-07-05 13:50 | NUR ---
CM FOLLOWUP [facility] CONTACTED AND RELAYED THEY COULD NOT CURRENTLY ACCEPT PT THEY HAD NO OPEN COVID BEDS. CM WAS ADVISED TO CONTACT FACILITY NEXT WEEK. PT NOT ELIGIBLE FOR MOST SNF PT IS NOT YET ENOUGH DAYS OUT FROM COVID DX. [facility] WAS PREVIOUSLY ABLE TO ACCEPT COVID PT, BUT BEDS ARE CURRENTLY LOCKED. CM TO ATTEMPT TO LINK PT TO [facility] WHEN BED BECOMES AVAILABLE.
--- NOTE | 2021-07-05 17:36 | NUR ---
PT AO X4 SITTING IN BED AT TIME OF ASSESSMENT. SHE IS MORBIDLY OBESE AND HAS RED YEASTY RASH IN PANUS. LUNGS DIMINISHED, PT ATRIAL FLUTTER ON MONITOR ON 3L NC SATTING APPROPRIATELY. PT MAKES NEEDS KNOW DURING HOURLY ROUNDING, SHE IS UP ADLIB TO BSC. CALL LIGHT IN REACH FOR PT SAFETY.
[2021-07-05 18:00] VITALS: BP 138/76
[2021-07-06 00:19] VITALS: BP 127/62
[2021-07-06 04:34] VITALS: BP 148/83
[2021-07-06 08:00] VITALS: BP 151/89
[2021-07-06 11:19] LABS: ABSOLUTE LYMPHOCYTES 0.6 thou/uL (0.8-5.3); ABSOLUTE MONOCYTES 0.5 thou/uL (0.0-1.2); ABSOLUTE NEUTROPHILS 5.9 thou/uL (1.6-8.1); BASOPHILS 0.1 %; HEMATOCRIT 38.3 % (37.0-47.0); HEMOGLOBIN 12.2 gm/dL (12.0-15.0); LYMPHOCYTES 8.4 %; MCH 28.5 pg (26.0-34.0); MCHC 31.8 g/dL (28.0-37.0); MCV 89.5 fL (80.0-100.0); MONOCYTES 7.1 %; MPV 7.6 fl. (7.2-11.1); NUCLEATED RBCS 0 /100WBC; PLATELET COUNT* 261 thou/uL (150-400); POLYS 84.4 %; RBC 4.28 mil/uL (4.20-5.00); WBC 6.9 thou/uL (4.0-11.0)
[2021-07-06 11:37] LABS: CALCIUM 8.7 mg/dL (8.5-10.1); CREATININE 1.2 mg/dL (0.6-1.3); POTASSIUM 4.3 mmol/L (3.5-5.1); TOTAL BILIRUBIN 0.3 mg/dL (<0.1-1.0); TOTAL PROTEIN 7.2 g/dL (6.4-8.2)
[2021-07-06 13:24] VITALS: BP 137/78
[2021-07-06 16:28] VITALS: BP 145/61
--- NOTE | 2021-07-06 16:59 | NUR ---
1604 - gave report to telemetry nurse. patient resting in room, SLIV, O2 per NC @4 L, telemetry leads on, gathered all patient's belongings, taken by bed to 218.
--- NOTE | 2021-07-06 17:51 | NUR ---
PT TRANSFERRED TO 2W ROOM 218. PT SON CAME WITH HER TO VISIT WITH HIS MOTHER. I AGREE WITH THE EARLIER ASSESSMENT ON THE PT. PT ATE HER SUPPER AND RECEIVED INSULIN WITHG HER FOOD. PT HAS SALINE LOCK ON HER LEFT HAND FLUSHES WELL. PT ON THE TELE MONITOR IN AFIB AT 78. WILL CONTINUE TO MONITOR PLAN OF CARE.
--- NOTE | 2021-07-06 19:24 | NUR ---
assumed care of patient around 0730. Patient had a ct placed around [address] to 20cm suction. 150ml sanquinous drainage. Patient also intubated with 8fr et, and taped 25@ teeth. Patient is on vent at 100%. RT here to assist with suctioning, and making vent changes. Patient was on propofol, versed drip, and levophed drip. Eventually dc'd propofol, and added fentanyl drip per Dr Hong order. Patient is sedated, but does get agitated at times with suctioning and changes in drips. CVL placed left ij at 1130. CXR done. Able to use for drips and fluids. UO total 350ml per hour. Renal Dr called around 1800, and labs were reported. Dr ordered labs for am. Dr Hong was also here today and reviewed orders. Dr Marques also here this am. Patients came in x3 to see patient and ask questions.
[2021-07-06 20:09] VITALS: BP 134/64
[2021-07-07 01:22] VITALS: BP 124/64
[2021-07-07 04:44] VITALS: BP 128/70
--- NOTE | 2021-07-07 05:49 | NUR ---
PT IS ABLE TO COMMUNICATE HER NEEDS TO STAFF EFFECTIVELY. SHE HAS DENIED THE NEED FOR PAIN MEDICATION UP TO THIS TIME. JOHNSON PATENT UP TO THIS TIME. PT WEARING HOME TRILOGY AT NIGHT WHILE SLEEPING. POSSIBLE DISCHARGE SOON.
[2021-07-07 05:52] LABS: ABSOLUTE BASOPHILS 0.1 thou/uL (0.0-0.2); ABSOLUTE LYMPHOCYTES 0.9 thou/uL (0.8-5.3); ABSOLUTE MONOCYTES 0.7 thou/uL (0.0-1.2); ABSOLUTE NEUTROPHILS 6.9 thou/uL (1.6-8.1); BASOPHILS 0.6 %; EOSINOPHILS 0.1 %; HEMATOCRIT 35.8 % (37.0-47.0); HEMOGLOBIN 11.5 gm/dL (12.0-15.0); LYMPHOCYTES 10.2 %; MCH 28.1 pg (26.0-34.0); MCV 87.9 fL (80.0-100.0); MONOCYTES 8.5 %; MPV 7.9 fl. (7.2-11.1); NUCLEATED RBCS 0 /100WBC; PLATELET COUNT* 215 thou/uL (150-400); POLYS 80.6 %; RBC 4.08 mil/uL (4.20-5.00); RDW-CV 14.7 % (10.5-14.5); WBC 8.6 thou/uL (4.0-11.0)
[2021-07-07 06:24] LABS: ALBUMIN 2.6 g/dL (3.4-5.0); CALCIUM 8.4 mg/dL (8.5-10.1); CREATININE 1.1 mg/dL (0.6-1.3); POTASSIUM 4.5 mmol/L (3.5-5.1); TOTAL BILIRUBIN 0.3 mg/dL (<0.1-1.0); TOTAL PROTEIN 6.4 g/dL (6.4-8.2)
[2021-07-07 08:00] VITALS: BP 140/70
[2021-07-07 11:10] VITALS: BP 110/68
[2021-07-07] MEDS ORDERED: DEXAMETHASONE1 MG PO (12:21)
--- NOTE | 2021-07-07 13:08 | NUR ---
PLAN OF CARE: PHYSICIAN INFORMS OF PLAN TO POSSIBLY D/C PT TOMORROW. HOWEVER PT MUST BE 10 POST-COVID TO ADMIT TO INPT ARU AT [facility]. CM SPOKE TO ADMISSIONS AT [facility] AND THEY INFORM THAT THET DO NOT CURRENTLY HAVE BED AVAILABILITY, BUT ARE HOPEFUL FOR DISCHARGES TODAY OR TOMORROW. PT WILL NEED PT/OT F/U TO ASSIST WITH OBTAINING ACCEPTANCE TO INPT ARU AT [facility]. CM WILL REMAIN AVAILABLE TO ASSIST AND FOLLOW NEEDED.
--- NOTE | 2021-07-07 13:56 | NUR ---
AM ASSESSMENT AND VITAL SIGNS COMPLETED DOCUMENTED. PT HAS BEEN A/O AND VERY PLEASANT. PT REMAINS ON O2 AT 4L/NC AND USES A TRILOGY AT HS. AFIB/FLUTTER ON THE DURABILITY ENGINEER, RATE WELL CONTROLLED. PT DENIES DISCOMFORT. FALL PRECAUTIONS AND HOURLY ROUNDING CONTINUE.
[2021-07-07 15:55] VITALS: BP 122/77
[2021-07-07 20:21] VITALS: BP 127/79
[2021-07-08] VITALS: BP 111/42; BP 123/67
[2021-07-08 04:00] VITALS: BP 126/71
--- NOTE | 2021-07-08 04:14 | NUR ---
PT ALERT AND ORIENTED, ON 43-NC AND USES CPAP AT NIGHT WHILE ASLEEP. SHE IS NOT REPORTING ANY PAIN, SOB HAS IMRPOVED, RECEIVED ALL MEDS SCHEDULED. SHE STILL HAS JOHNSON IN PLACE WITH LARGE AMT URINE OUTPUT OVERNIGHT, LIGHT YELLOW URINE. NO BM THIS SHIFT, NYSTATIN CREAM AT BEDSIDE FOR PANNUS. SLEPT WELL THIS SHIFT WITH NO ISSUES. AFIB ON MONITOR.
[2021-07-08 08:10] VITALS: BP 144/66
--- NOTE | 2021-07-08 10:04 | NUR ---
Nutrition: Pt admitted with COVID PNA. Assessed for LOS. Labs: BG 117-175, alb 2.6, prealb 38. CHO controlled diet. Meds: MVI, Fe, insulin. Wt at usual of 490#. H/o COPD, FRANCIA, HTN, afib, OBE. Likely discharge to rehab today. Consider mild risk.
[2021-07-08 12:00] VITALS: BP 145/73
--- NOTE | 2021-07-08 16:17 | NUR ---
PLAN OF CARE: CM INFORMED DURING PRIME ROUNDING OF PLAN FOR THE PT TO TRANSFER TO INPT ARU HERE TODAY. CM CONTACTED [facility] INPT ARU TO INFORM OF THIS. CM WILL REMAIN AVAILABLE TO ASSIST AND FOLLOW NEEDED.
[2021-07-08] MEDS ORDERED: NYSTATIN1 EA10 TOP (18:35)
[2021-07-08] MEDS ORDERED: NYSTATIN100000 UNI PO (18:36)
[2021-07-08] MEDS ORDERED: PULMICORT0.5 MG/22 INH (18:38)
[2021-07-08] MEDS ORDERED: IPRAT-ALBUT 0.5-3 ML INH (18:39)
[2021-07-08] MEDS ORDERED: ARFORMOTER15 MCG/2 M INH (18:40)
[2021-07-08] MEDS ORDERED: MUCINEX600 MG PO (18:41)
[2021-07-08] MEDS ORDERED: MELATONIN10 M3 PO (18:46)
[2021-07-08 19:55] VITALS: BP 145/58
[2021-07-09 04:00] VITALS: BP 126/85
--- NOTE | 2021-07-09 07:10 | NUR ---
CHANGE OF SHIFT REPORT GIVEN PATIENT SEEN AT BEDSIDE, IN BED RESTING ASSUMED PATIENT CARE
[2021-07-09 08:00] VITALS: BP 134/95
--- NOTE | 2021-07-09 10:20 | NUR ---
PLAN OF CARE: NIKKO RECIEVED A CALL FROM VINCENT WITH [facility] ADMISSIONS AND SHE INFORMS THAT THE FACILITY HAS ACCEPTED THE PT, AND WILL ADMIT HER PENDING ARRANGEMENT OF BARIATRIC DME. VINCENT TO RETURN CALL TO THIS CM WHEN DME IS ARRANGED AND SHE WILL ARRANGE TRANSPORTATION FOR THE PT. CM WILL REMAIN AVAILABLE TO ASSIST AND FOLLOW NEEDED. [facility] PHONE: [phone] FAX: [phone]
--- NOTE | 2021-07-09 19:17 | NUR ---
patient discharged to [facility] dc paperwork and belongings sent telephone report [facility]
== END 2021-07-09 19:21 | DRG 177 ==
LOC: M.ERS 11:37 → M.TBA-ER 14:35 → M.ORTHSURG 07-01 00:37 → M.2W 07-06 16:43
PROVIDERS: Emergency Medicine Emergency Medical Services; Internal Medicine; Internal Medicine Critical Care Medicine; ADMIT Internal Medicine; ATTEND Internal Medicine
PROC: 5A09357 Assistance with Respiratory Ventilation, Less than 24 Consecutive Hours, Continuous Positive Airway Pressure (ICD-10-PCS; principal; 2021-06-30)
PROC: 5A09357 Assistance with Respiratory Ventilation, Less than 24 Consecutive Hours, Continuous Positive Airway Pressure (ICD-10-PCS; 2021-07-01)
PROC: XW033E5 Introduction of Remdesivir Anti-infective into Peripheral Vein, Percutaneous Approach, New Technology Group 5 (ICD-10-PCS; 2021-07-01)
PROC: 5A0935A Assistance with Respiratory Ventilation, Less than 24 Consecutive Hours, High Flow/Velocity Cannula (ICD-10-PCS; 2021-07-02)
PROC: 5A09357 Assistance with Respiratory Ventilation, Less than 24 Consecutive Hours, Continuous Positive Airway Pressure (ICD-10-PCS; 2021-07-02)
PROC: 5A09357 Assistance with Respiratory Ventilation, Less than 24 Consecutive Hours, Continuous Positive Airway Pressure (ICD-10-PCS; 2021-07-03)
PROC: 05HC33Z Insertion of Infusion Device into Left Basilic Vein, Percutaneous Approach (ICD-10-PCS; 2021-07-03)
PROC: 5A09357 Assistance with Respiratory Ventilation, Less than 24 Consecutive Hours, Continuous Positive Airway Pressure (ICD-10-PCS; 2021-07-04)
PROC: 5A09357 Assistance with Respiratory Ventilation, Less than 24 Consecutive Hours, Continuous Positive Airway Pressure (ICD-10-PCS; 2021-07-05)
PROC: 5A09357 Assistance with Respiratory Ventilation, Less than 24 Consecutive Hours, Continuous Positive Airway Pressure (ICD-10-PCS; 2021-07-06)
PROC: 5A0935A Assistance with Respiratory Ventilation, Less than 24 Consecutive Hours, High Flow/Velocity Cannula (ICD-10-PCS; 2021-07-06)
PROC: 5A09357 Assistance with Respiratory Ventilation, Less than 24 Consecutive Hours, Continuous Positive Airway Pressure (ICD-10-PCS; 2021-07-09)
DX: U07.1 COVID-19 (principal); I50.33 Acute on chronic diastolic (congestive) heart failure; J96.21 Acute and chronic respiratory failure with hypoxia; J96.22 Acute and chronic respiratory failure with hypercapnia; J12.82 Pneumonia due to coronavirus disease 2019; J44.1 Chronic obstructive pulmonary disease with (acute) exacerbation; E66.2 Morbid (severe) obesity with alveolar hypoventilation; J44.0 Chronic obstructive pulmonary disease with (acute) lower respiratory infection; Z68.45 Body mass index [BMI] 70 or greater, adult; I11.0 Hypertensive heart disease with heart failure; I48.91 Unspecified atrial fibrillation; Z88.6 Allergy status to analgesic agent; Z87.891 Personal history of nicotine dependence; Z90.5 Acquired absence of kidney; Z28.21 Immunization not carried out because of patient refusal